=== PATIENT | female | born 1960 | race Caucasian/White ===

== ENCOUNTER 2017-10-11 19:15 | Inpatient (IN) | payer OTHER ==
[~2017-10-11] VITALS: Ht 152.4 cm; Wt 51.6 kg
[2017-10-11 19:24] VITALS: BP 131/99
[2017-10-11] MEDS ORDERED: LORAZEPAM 1 MG TAB PO PRN (20:00)
[2017-10-11] MEDS ORDERED: ICU PROTOCOL FOR HYPERGLYCEMIA PRN (20:00)
[2017-10-11 20:03] VITALS: BP 131/99; PULSE 82; O2SAT 93; Ht 152.4 cm; Wt 51.6 kg
[2017-10-11 20:08] VITALS: BP 84/59; PULSE 86; TEMP 36.7; O2SAT 92
--- NOTE | 2017-10-11 20:19 | History and Physical ---
History & Physical Date of Service Oct 11, 2017. History & Physical SEVERE HYPONATREMIA, ALCOHOL WITHDRAWAL, uti [id number]
[2017-10-11 20:26] LABS: INR 1.1 (0.9-1.1); PTT PATIENT 26.4 SECONDS (21.0-31.0)
[2017-10-11] MEDS ORDERED: CEPHALEXIN MONOHYDRATE 500 MG CAP PO ONE (20:30)
[2017-10-11] MEDS ORDERED: SODIUM CHLORIDE 0.9% 1000ML 1,000 ML IV SCH (20:30)
[2017-10-11] MEDS ORDERED: PANTOprazole SOD 40 MG TAB PO STA (20:32)
[2017-10-11 20:56] LABS: ALBUMIN 3.6 gm/dl (3.4-5.0); ALKALINE PHOSPHATASE 99 U/L (45-117); ALT/SGPT 49 U/L (12-78); AST/SGOT 72 U/L (15-37); BLOOD UREA NITROGEN 15 mg/dl (7-18); CALCIUM 8.2 mg/dl (8.5-10.1); CARBON DIOXIDE 31 mmol/L (21-32); GLUCOSE 103 mg/dl (70-99); POTASSIUM 2.8 mmol/L (3.5-5.1); SODIUM 114 mmol/L (136-145); TOTAL PROTEIN 6.4 gm/dl (6.4-8.2)
[2017-10-11] MEDS ORDERED: MULTI-VITAMIN INFUSION INJ 10 ML, THIAMINE HCL INJ 100 MG, FoLIC ACID INJ 1 MG in SODIU... IV SCH (21:00)
[2017-10-11] MEDS ORDERED: MULTI-VITAMIN INFUSION INJ 10 ML, THIAMINE HCL INJ 100 MG, FoLIC ACID INJ 1 MG in SODIU... IV ONE (21:00)
[2017-10-11 21:01] VITALS: BP 103/79; PULSE 99; O2SAT 90
[2017-10-11] MEDS: FLUTICASONE/SALMETEROL 100/50 (ADVAIR) 14 PUFF/1 INHALER INH SCH (21:02)
[2017-10-11 21:31] LABS: CKMB 9.8 ng/ml (0.5-3.6)
[2017-10-11] MEDS ORDERED: POTASSIUM CHLR 10 MEQ / WTR 100 ML IV STA ×2 (21:36)
[2017-10-11 21:46] LABS: HEMOGLOBIN 13.1 g/dL (12.0-16.0); MEAN CELL VOLUME 88.6 fL (80-100); MEAN CORPUSCULAR HEMOGLOBIN 33.2 pg (25-34); MEAN CORPUSCULAR HGB CONC 37.4 g/dl (32-36); MEAN PLATELET VOLUME 10.2 fL (7.4-10.4); PLATELET COUNT 225 K/uL (130-400); RED CELL DISTRIBUTION WIDTH CV 12.5 % (11.5-14.5); RED CELL DISTRIBUTION WIDTH SD 40.6 fL (36.4-46.3); WHITE BLOOD COUNT 7.61 K/uL (4.8-10.8)
[2017-10-11] MEDS ORDERED: POTASSIUM CHLORIDE 20 MEQ TABCR PO STA (21:46)
--- NOTE | 2017-10-11 21:46 | HISTORY & PHYSICAL EXAMINATION ---
DATE OF ADMISSION: 10/11/2017 This is a level 3 inpatient admission, 40 minutes. CHIEF COMPLAINT: Severe hyponatremic, alcoholic, severe hypokalemia and hypomagnesemia. HISTORY OF PRESENT ILLNESS: The patient is a 57-year-old white female with a significant past medical history of tobacco abuse disorder, COPD, alcohol abuse disorder, hypertension, dyslipidemia, transferred from [facility] because of severe hyponatremia, hypokalemia, and hypomagnesemia. Medical records obtained from ED physician in [facility], and face to face talk with patient. The patient reported she has not been feeling well for a couple of days. She has continued heavy alcohol intake. Last time alcohol drink was last night. She showed up in [facility] today because of generalized weakness and diarrhea as well. In [facility], she was found to have severe hyponatremia. They gave medicine of 3% of saline x1. She was found to have severe hypokalemia, potassium was replaced with 10 mEq IV and 30 mEq p.o. She was found to have hypomagnesemia. Magnesium 2 g was given. She reported was having tremors, not really mental status changes. Other testing has been unremarkable. When I interviewed the patient, she was anxious, some tremor, a little bit hyper in talking. She was awake, alert, and orientated. She was having some facial superficial skin scratches she reported was from cat scratch. There was not any drainage. There was no fever or chills. Denied chest pain, palpitation, cough, or sputum. Denied lower extremity swelling. Currently, denied nausea, vomiting, abdominal pain, diarrhea, or constipation. Denied dysuria, urgency, or frequencies. Denied facial droop, slurry speeches, or local weakness. Per report in [facility], she was having some emesis. She reportedly has some left rib pain and lower back pain from the fall over a month ago, which was evaluated. There were no acute conditions. ALLERGIES: No known drug allergies. PAST MEDICAL HISTORY: Like I mentioned above includes COPD, tobacco abuse disorder, hypertension, dyslipidemia, multiple remote injuries from the fall including some rib fractures and chronic lower back pain. SOCIAL HISTORY: Includes tobacco abuse disorder 1 pack per day, heavy alcohol intake, history of alcohol withdrawal. REVIEW OF SYSTEMS: Please see HPI. Otherwise 14 points organ system review were negative. MEDICATIONS: Given in [facility] include normal saline, Zofran, famotidine, DuoNeb, potassium, magnesium, thiamine, Librium, and Ativan. Her medicines taken at home were unknown. Per report she was taking some medicine for her high blood pressure, which was recently started. PHYSICAL EXAMINATION: VITAL SIGNS: The patient is afebrile, heart rate is 80 beats per minute, respiratory rate is around 18, blood pressure was 130/99, heart rate 114. GENERAL: In no acute respiratory distress. The patient is awake, alert, and oriented. HEENT: Head was normocephalic. Pupils equal, round, responsive to light. Ears were normal. Nose was normal. NECK: Supple. Thyroid: No enlargement. Trachea in midline. No JVD. ABDOMEN: Soft, nontender. Bowel sound was positive. No rebound, rigidity, or guarding. No mass. Bilateral CVA was nontender, MUSCULOSKELETAL: C-spine, T-spine, and L-spine were nontender. No chest wall pain. NEUROLOGICAL: Awake, alert, and oriented. No facial droop. Cranial nerves II through XII were intact. Motor and sensation were intact. EKGs in [facility] shows heart rate 88 beats per minutes, otherwise no ST-T phase changes. LABORATORY DATA: In [facility], WBC 11, hemoglobin 14, platelets 275, neutrophil was 84%. PT/INR were 11/1. UA shows 3+ esterase. BUN 17, creatinine 1, sodium 106, potassium 2.9, bicarbonate 31, calcium 9.2, magnesium 1.1. Total protein 7.8, albumin is 4.2, total bilirubin 1.3, AST 78, ALT 54, alkaline phosphate 119. Troponin was negative x1 set. BNP was 876. Urine drug screen was negative. Alcohol level was 0. IMAGING: Chest x-ray was unremarkable. ASSESSMENT: A 57-year-old white female transferred from [facility] because of problems below: 1. Severe hyponatremia. 2. Alcohol abuse disorder, possible early of alcohol withdrawal. 3. Severe hypokalemia. 4. Severe hypomagnesemia. 5. History of chronic obstructive pulmonary disease and tobacco abuse disorder. 6. Possible urinary tract infection with mild leukocytosis. 7. History of dyslipidemia. 8. History of hypertension. PLAN: The patient has severe hyponatremia. She got 3% sodium chloride solution in [facility]. Potassium and magnesium were replaced. We will check labs stat and replace accordingly. For now, we will continue normal saline solution at 150 mL/h, and we will check BMP at midnight, and then, we will adjust IV fluids accordingly. should keep in mind that minimal increased of sodium should be less taht 12 meq in 24 hr because high risk soft of central pontine syndrome if revise too quick. The patient currently is mentally good. Will put her on alcohol withdrawal protocol, banana bag, Ativan as needed, seizure precaution, fall precaution. Will continue DuoNeb for COPD. There were no signs of COPD exacerbation for now. Will give nicotine patch for history of tobacco abuse disorder. Will check fasting lipid panel, and we will start home medication for high blood pressure if we are able to find out the name of the medicine she was taking at home. [employer] consultation. Will watch for diarrhea. For now, she did not have obvious diarrhea. Will watch about that. GI and DVT prophylaxis is covered. The patient is full code. MTDD
[2017-10-11 21:48] LABS: BASO % 0.1 %; BASO ABS # 0.01 K/uL (0-0.2); EOS % 0.3 %; EOS ABS # 0.02 K/uL (0-0.5); IG# 0.02 K/uL (0.00-0.02); LYMPH % 11.6 %; LYMPH ABS # 0.88 K/uL (1.2-3.4); MONO % 8.9 %; MONO ABS # 0.68 K/uL (0.11-0.59); NEUT % 78.8 %
[2017-10-11 21:57] LABS: PHOSPHORUS 1.7 mg/dl (2.5-4.9)
[2017-10-11 22:01] VITALS: BP 98/69; PULSE 90; O2SAT 91
--- NOTE | 2017-10-11 22:52 | Critical Care Consultation ---
Critical Care Consultation Date of Consultation: Oct 11, 2017. Attending Physician: Karri Hooks MD, PhD Reason for Consultation: 57-year-old female with severe hyponatremia in the setting of alcoholism and possible fluid losses from GI source requiring close laboratory and hemodynamic monitoring. History of Present Illness Patient is a 57-year-old female with a significant past medical history of alcohol abuse, COPD, hypertension, and hyperlipidemia. Admittedly, the patient does not regularly see a primary care provider. She has had increasing falls and has recently been seen at [facility] for this. She states that on she noticed increasing nausea and associated vomiting and diarrhea. She has felt more weak and tired recently. She had persistent vomiting which brought her to the emergency department today. While at the [facility], she was thought to be altered. She received IV Ativan for agitation as well as 100 mL of 3% sodium chloride. In addition, she received 1500 L of normal saline as well as potassium supplementation with 30 mg orally and 10 mg intravenously. She received replacement of magnesium as well. She was declined by hospitalist at [facility] secondary to severe hyponatremia and was subsequently is accepted at our facility for further evaluation and management. It is important to note that the patient has had no seizure activities. Other than slight confusion, no other reported neurological manifestations have been documented. On evaluation in the ICU, the patient is awake, alert, and oriented. She is somewhat confused, however she reports feeling this way after the administration of Ativan at [facility]. The patient reports that the nausea, vomiting, diarrhea is what initially brought her to the hospital. She understands that her sodium is low as well as her potassium. She does admit that during previous emergency department visit, she was instructed to start to utilize magnesium supplementation which she has not to this point. The patient reports no pain. She does report a chronic cough which she states is unchanged. She does admit to drinking 2 large glasses of "rot gut" whiskey per night. She is uncertain as the last time she is been without a drink. She has never experienced withdrawal symptoms. She denies any history of withdrawal seizures. She denies any consumptions of significant amounts of free water, and actually reports that anything she is attempted to drink recently has been vomited back up. Patient currently denies any headaches, dizziness, lightheadedness, double vision, chest pain, palpitations, shortness of breath, pleuritic pain, hemoptysis, abdominal pain, hematochezia, melena, hematuria, or dysuria. The patient lives at home with her sister. She is employed. She smokes heavily. She denies any other illicit drug use. Past Medical/Surgical History Hypertension Hyperlipidemia COPD Alcohol Abuse Family History No pertinent family history. Social History Smoking Status: Current Every Day Smoker Smokeless Tobacco Use: No Alcohol Use: heavy Drug Use: none Marital Status: single Housing Status: lives with family Occupation Status: employed Allergies Coded Allergies: No Known Allergies (Unverified , 10/11/17) Current Inpatient Medications Current Inpatient Medications Medications (Trade) Dose Ordered Sig/Anirudh Route Start Time Stop Time Status Last Admin Dose Admin Enoxaparin Sodium (Lovenox Inj) 40 mg Q24H SQ 10/11/17 21:00 11/10/17 20:59 Acetaminophen (Tylenol Tab) 650 mg Q4H PRN PO 10/11/17 20:00 11/10/17 19:59 Miscellaneous Information (Icu Protocol For Hyperglycemia) 1 ea PRN PRN N/A 10/11/17 20:00 10/13/17 19:59 Lorazepam (Ativan Tab) 1 mg ONE PRN PO 10/11/17 20:00 Lorazepam (Ativan Inj) PRN Dosing -Active Protocol Q1H PRN IV 10/11/17 20:00 11/10/17 19:59 Nicotine (Nicoderm Cq 7 Mg Patch) 1 patch QAM TD 10/12/17 09:00 11/11/17 08:59 Miscellaneous (Remove Nicoderm Patch) 1 ea HS N/A 10/12/17 21:00 11/11/17 20:59 Pantoprazole Sodium (Protonix Tab) 40 mg QAM PO 10/12/17 09:00 10/15/17 09:01 Albuterol/ Ipratropium (Duoneb) 3 ml QIDR INH 10/12/17 08:00 11/11/17 07:59 Cephalexin Monohydrate (Keflex Cap) 500 mg QID PO 10/12/17 09:00 10/16/17 20:59 Salmeterol Xinafoate/ Fluticasone (Advair Diskus 100/50 Inh) 1 puff BID INH 10/11/17 21:00 11/10/17 20:59 10/11/17 21:02 1 PUFF Multivitamins 10 ml/Thiamine HCl 100 mg/Folic Acid 1 mg/Sodium Chloride 1,011.2 ml @ 80 mls/hr [id number] IV 10/11/17 21:00 11/10/17 20:59 Future Hold Potassium Chloride 100 ml @ 100 mls/hr NOW STAT IV 10/11/17 21:36 10/11/17 22:35 UNV Review of Systems A complete 10-point Review of Systems was discussed with the patient, with pertinent positives and negatives listed in the History of Present Illness. All remaining Review of Systems questions can be considered negative unless otherwise specified. Physical Exam Date Time Temp Pulse Resp B/P (MAP) Pulse Ox O2 Delivery O2 Flow Rate FiO2 10/11/17 20:03 82 20 131/99 93 Room Air VITAL SIGNS - Vital signs and nursing notes were reviewed. GENERAL - 57-year-old female appearing her stated age who is in no acute distress. Appears intoxicated, but communicates well with provider and answers questions appropriately. SKIN - Without rashes. Dry w/ tenting noted. HEAD - NC/AT. EYES - PERRL with EOMI bilaterally. Sclera anicteric. EARS - No deformities of external structures noted on gross examination bilaterally. NOSE - Midline and without cyanosis. No epistaxis or purulent drainage noted. MOUTH/OROPHARYNX - Without perioral cyanosis. Buccal mucosa pink and dry. Tongue midline with equal elevation of palate bilaterally. Edentulous in the upper palate. NECK - Neck with FROM. Supple to palpation. No lymphadenopathy noted. No nuchal rigidity. LUNGS - Chest wall symmetric without accessory muscle use, intercostals retractions, or central cyanosis. Normal vesicular breath sounds CTA B/L. Occasional inspiratory wheeze appreciated. No rales or rhonchi appreciated. CARDIAC - RRR with S1/S2. No murmur, rubs, or gallops appreciated. ABDOMEN - Abdominal contour flat without pulsations or visible masses. BS normoactive all four quadrants. No tenderness, palpable masses, hepatosplenomegaly, or ascites noted. EXTREMITIES - No clubbing or peripheral cyanosis. No pretibial edema present. +3 /5 radial and dorsalis pedis pulses palpated throughout. +5/5 strength noted in UE/LE bilaterally. NEUROLOGIC - Cranial nerves II through XII grossly intact. Sensory intact to light touch throughout. PSYCH - A&Ox3 and cooperates fully with examiner. Pt is very pleasant and interacts well with examiner. Laboratory Results Last 24 Hours Test 10/11/17 19:46 10/11/17 20:00 10/11/17 21:36 Creatine Kinase MB Ratio 0.7 White Blood Count 7.61 K/uL Red Blood Count 3.95 M/uL Hemoglobin 13.1 g/dL Hematocrit 35.0 % Mean Corpuscular Volume 88.6 fL Mean Corpuscular Hemoglobin 33.2 pg Mean Corpuscular Hemoglobin Concent 37.4 g/dl Platelet Count 225 K/uL Mean Platelet Volume 10.2 fL Neutrophils (%) (Auto) 78.8 % Lymphocytes (%) (Auto) 11.6 % Monocytes (%) (Auto) 8.9 % Eosinophils (%) (Auto) 0.3 % Basophils (%) (Auto) 0.1 % Neutrophils # (Auto) 6.00 K/uL Lymphocytes # (Auto) 0.88 K/uL Monocytes # (Auto) 0.68 K/uL Eosinophils # (Auto) 0.02 K/uL Basophils # (Auto) 0.01 K/uL RDW Standard Deviation 40.6 fL RDW Coefficient of Variation 12.5 % Immature Granulocyte % (Auto) 0.3 % Immature Granulocyte # (Auto) 0.02 K/uL Toxic Vacuolation 1+ Giant Platelets 1+ Prothrombin Time 11.3 SECONDS Prothromb Time International Ratio 1.1 Activated Partial Thromboplast Time 26.4 SECONDS Partial Thromboplastin Ratio 1.0 Sodium Level 114 mmol/L Potassium Level 2.8 mmol/L Chloride Level 74 mmol/L Carbon Dioxide Level 31 mmol/L Anion Gap 8.0 mmol/L Blood Urea Nitrogen 15 mg/dl Creatinine 0.80 mg/dl Est Creatinine Clear Calc Drug Dose 55.1 ml/min Estimated GFR () 94.2 Estimated GFR (Non- 81.3 BUN/Creatinine Ratio 18.4 Random Glucose 103 mg/dl Lactic Acid Level 1.2 mmol/L Calcium Level 8.2 mg/dl Phosphorus Level 1.7 mg/dl Magnesium Level 2.2 mg/dl Total Bilirubin 0.9 mg/dl Direct Bilirubin 0.2 mg/dl Aspartate Amino Transf (AST/SGOT) 72 U/L Alanine Aminotransferase (ALT/SGPT) 49 U/L Alkaline Phosphatase 99 U/L Total Creatine Kinase 1480 U/L Creatine Kinase MB 9.8 ng/ml Troponin I < 0.015 ng/ml Total Protein 6.4 gm/dl Albumin 3.6 gm/dl Vitamin B12 Level 837 pg/mL Folate 2.60 ng/mL Diagnostic Results Outside radiographic reports and EKGs were reviewed by myself. Assessment & Plan (1) Hyponatremia (2) Dehydration with hyponatremia (3) Nausea vomiting and diarrhea (4) Alcohol abuse (5) Hypomagnesemia (6) Hypokalemia (7) Tobacco abuse Reason Critically Ill: 57-year-old female with severe hyponatremia in the setting of alcoholism and possible fluid losses from GI source requiring close laboratory and hemodynamic monitoring. Neuro - * CAM ICU: NEGATIVE * EtOH Abuse: * CIWA protocols. * Folate/Thiamine daily. * Ativan PRN for agitation. * Will avoid excessive use of sedation medications while attempting to correct hyponatremia in an effort of avoiding clouding of neurological assessment. Cardiac - * Hypertension: * Hold home Rx until BP more stable. * EKG: NSR 88bpm w/o ST/T-wave changes per my interpretation. QTc 488ms - cautious use of QTc prolonging Rx. * Monitor on telemetry w/ multiple electrolyte derangements. Respiratory - * COPD w/ Chronic Cough: * Will add AM CXR * Nebs PRN * Supplemental O2 PRN * Encouraged smoking cessation. GI - * Gastroenteritis presentation (N/V/D): * Will allow full diet as tolerated. * Restrict Free Water to 1500mL/day in the setting of acute hyponatremia. * Prophylaxis: Protonix RENAL/LYTES - * Hyponatremia: * Labs at [facility] (1499) - Na 106/K 2.9/Cl 59/Mg 1.1 --> received 1500 cc boluses of NSS, 100 mL of 3% saline, 2g IV Mg * Labs on arrival (1999) - Na 114/K 2.8/Cl 74/Mg 2.2 * Likely combination of Pt's EtOH abuse. * Will hold all IVF at this time (including Banana bag) as pt Na increased by 8mmol/L in ~5hrs. * q4hr PRPs * Patient tolerating PO intake - will restrict to 1500mL/day at this point. * Supplement Na orally PRN * Will add Osmolality for completeness. * Will add urine Na to identify any contributing GI losses. * Hypokalemia: * Received 30 PO and 10 IV at [facility] * Also received albuterol nebulizer which may contribute to persistently low K levels. * Will supplement as needed. Thankfully, no EKG changes at this point. * Hyomagnesemia: * Supplement PRN. - * Michael in place. * Concerns for UTI at [facility]. * Will repeat w/ cath urine specimen. * Currently on Keflex. Will reassess w/ UA results. ENDO - * No h/o DM or Thyroid Dz * BSGs as ordered --> ISS/gtt per protocol. HEME - * Stable H&H * Will trend. ID - * ??UTI from [facility]: * Initially treated w/ PO Keflex. * Will repeat Cath urine specimen. * Adjust treatment as needed. * Monitor fever curve. LINES/IV ACCESS - * PIVs x2 * Michael Catheter DVT PROPHYLAXIS - * Lovenox sq * SCDs CODE STATUS - * In conversation with the patient, she initially wished to forego any heroic measures, however with her son present, she agrees to FULL CODE STATUS with the caveat that we will contact her children and they can make definitive decision to withdraw any measures as they deem fit. I have personally spent 45 minutes of critical care time in the direct management of this patient. This is a life/limb threatening event. This includes time spent evaluating patient, direct bedside care, chart review, placing orders, interpretation of diagnostic studies, discussion with consultants, patient, and family members, as well as other required patient management activities. This time is exclusive of all separately billable procedures, and teaching time and separate from and in addition to any other critical care service time. Thank you for this consultation allow us to be part of this patient's care. Please refer to my attending physician's documentation for any further recommendations.
[2017-10-11 23:02] VITALS: BP 120/89; PULSE 94; O2SAT 92
[2017-10-11] MEDS: ENOXAPARIN 40 MG/0.4 ML SYR SQ SCH (23:24)
[2017-10-11 23:48] LABS: CALCIUM 8.5 mg/dl (8.5-10.1); CREATININE 0.98 mg/dl (0.60-1.20); POTASSIUM 2.8 mmol/L (3.5-5.1)
[2017-10-12] VITALS (31 sets, daily range): BP systolic 89–150; BP diastolic 52–103; PULSE 76–142; TEMP 36.7–37.3; O2SAT 90–100
[2017-10-12] LABS: PHOSPHORUS 1.4 mg/dl (2.5-4.9)
[2017-10-12] MEDS ORDERED: POTASSIUM CHLR 10 MEQ / WTR 100 ML IV STA (00:40)
[2017-10-12 05:00] LABS: BASO % 0.1 %; BASO ABS # 0.01 K/uL (0-0.2); EOS % 0.5 %; EOS ABS # 0.04 K/uL (0-0.5); HEMATOCRIT 33.3 % (37-47); HEMOGLOBIN 12.4 g/dL (12.0-16.0); IG# 0.02 K/uL (0.00-0.02); LYMPH % 11.4 %; LYMPH ABS # 0.89 K/uL (1.2-3.4); MEAN CELL VOLUME 90.2 fL (80-100); MEAN CORPUSCULAR HEMOGLOBIN 33.6 pg (25-34); MEAN CORPUSCULAR HGB CONC 37.2 g/dl (32-36); MEAN PLATELET VOLUME 10.1 fL (7.4-10.4); MONO % 11.4 %; MONO ABS # 0.89 K/uL (0.11-0.59); NEUT % 76.3 %; NEUT ABS # 5.98 K/uL (1.4-6.5); PLATELET COUNT 214 K/uL (130-400); RED CELL DISTRIBUTION WIDTH CV 12.6 % (11.5-14.5); RED CELL DISTRIBUTION WIDTH SD 41.4 fL (36.4-46.3); WHITE BLOOD COUNT 7.83 K/uL (4.8-10.8)
[2017-10-12 05:27] LABS: ALBUMIN 3.4 gm/dl (3.4-5.0); CALCIUM 8.6 mg/dl (8.5-10.1); CREATININE 0.8 mg/dl (0.60-1.20); POTASSIUM 3.2 mmol/L (3.5-5.1)
[2017-10-12 05:44] LABS: PHOSPHORUS 2.1 mg/dl (2.5-4.9); TOTAL PROTEIN 6.1 gm/dl (6.4-8.2)
[2017-10-12] MEDS ORDERED: POTASSIUM CHLORIDE 20 MEQ TABCR PO STA ×2 (06:52→13:07)
--- NOTE | 2017-10-12 07:06 | DIAGNOSTIC IMAGING REPORT ---
CHEST ONE VIEW PORTABLE CLINICAL HISTORY: Cough. COMPARISON STUDY: No previous studies for comparison. FINDINGS: Lung volumes are normal. There is no pneumothorax or pleural effusion. There is no evidence for pulmonary edema. There is mild left basilar opacity. A 1.1 cm nodule projects over the left lower lung. This favors a nipple shadow. Cardiac size is normal. Mediastinal contours are normal. There is no evidence for pulmonary edema. IMPRESSION: 1. Mild left basilar opacity which may reflect atelectasis or a small focus of pneumonia. Follow-up PA and lateral chest radiographs in one month are recommended. 2. 1.1 cm nodular density projecting over the left lower lung which favors a nipple shadow. Electronically signed by: Ar Renee M.D. 10/12/2017 7:05 AM Dictated Date/Time: 10/12/2017 7:03 AM
[2017-10-12] MEDS: ALBUT/IPRATROP 3MG/0.5MG NEB 3 ML VIAL INH SCH ×4 (07:18→21:00)
[2017-10-12] MEDS: FLUTICASONE/SALMETEROL 100/50 (ADVAIR) 14 PUFF/1 INHALER INH SCH ×2 (07:50→20:58)
[2017-10-12] MEDS: NICOTINE 7 MG/24 HR TDSY TD SCH (07:52)
[2017-10-12] MEDS: POT PHOSPHATE MONOBASIC W/ SOD TAB PO SCH ×4 (07:53→20:59)
[2017-10-12] MEDS: DEXTROSE 10% 1,000 ML IV SCH ×3 (08:00→21:01)
[2017-10-12] MEDS ORDERED: PANTOprazole SOD 40 MG TAB PO SCH (09:00)
[2017-10-12] MEDS ORDERED: MULTI-VITAMIN INFUSION INJ 10 ML, THIAMINE HCL INJ 100 MG, FoLIC ACID INJ 1 MG in SODIU... IV SCH (09:00)
[2017-10-12] MEDS ORDERED: CEPHALEXIN MONOHYDRATE 500 MG CAP PO SCH (09:00)
[2017-10-12] MEDS ORDERED: THIAMINE HCL INJ 100 MG in SYRINGE 9 ML IV SCH (09:00)
[2017-10-12] MEDS ORDERED: FoLIC ACID INJ 1 MG in SYRINGE 9.8 ML IV SCH (09:00)
--- NOTE | 2017-10-12 09:33 | Progress Note ---
Subjective Date of Service: Oct 12, 2017. Subjective Pt evaluation today including: conversation w/ patient, physical exam, chart review, lab review, review of studies, review of inpatient medication list was a little confused this am, but doing better now, has been on the phone talking, mild cough, no tremor, denies anxiety.. Problem List Medical Problems: (1) Dehydration with hyponatremia Status: Acute (2) Hypokalemia Status: Acute (3) Hypomagnesemia Status: Acute (4) Hyponatremia Status: Acute (5) Nausea vomiting and diarrhea Status: Acute (6) Tobacco abuse Status: Chronic Social History Problems: (1) Alcohol abuse Status: Chronic Review of Systems Constitutional: + weakness, + fatigue, No fever, No chills, No sweats, No weight loss, No problem reported Eyes: No worsening of vision, No eye pain, No redness, No discharge, No diplopia ENT: No hearing loss, No unusual epistaxis, No nasal symptoms, No sore throat, No tinnitus, No dental problems, No trouble swallowing Respiratory: No cough, No sputum, No wheezing, No shortness of breath, No dyspnea on exertion, No dyspnea at rest, No hemoptysis Cardiac: No chest pain, No orthopnea, No PND, No edema, No claudication, No palpitations Abdomen: No pain, No nausea, No vomiting, No diarrhea, No constipation Musculoskeletal: No joint pain, No muscle pain, No swelling, No calf pain Female : No dysuria, No urinary frequency, No hematuria, No incontinence, No abnormal vaginal bleeding, No vaginal discharge Neurologic: No memory loss, No paralysis, No weakness, No numbness/tingling, No vertigo, No balance problems Psychiatric: No depression symptoms, No anhedonism, No anxiety, No insomnia, No substance abuse Heme: No abnormal bleeding/bruising, No clotting problems, No swollen lymph nodes, No night sweats Endo: No fatigue, No excessive thirst, No excessive urination Skin: No rash, No itch, No new/changing skin lesions, No color change, No bleeding Objective Vital Signs Date Time Temp Pulse Resp B/P (MAP) Pulse Ox O2 Delivery O2 Flow Rate FiO2 10/12/17 07:35 77 18 94 Room Air 10/12/17 06:01 79 19 89/60 (70) 90 10/12/17 05:01 95 25 100/52 (68) 92 10/12/17 04:09 Room Air 10/12/17 04:01 37.3 93 21 115/83 (94) 90 10/12/17 03:03 98 20 122/79 (93) 91 10/12/17 02:01 37.0 86 21 113/73 (86) 98 10/12/17 01:01 87 24 105/64 (78) 92 10/12/17 00:11 Room Air 10/12/17 00:01 36.7 86 21 115/78 (90) 93 10/11/17 23:02 94 19 120/89 (99) 92 10/11/17 22:01 90 19 98/69 (79) 91 10/11/17 21:01 99 26 103/79 (87) 90 10/11/17 20:08 36.7 86 24 84/59 (67) 92 10/11/17 20:03 82 20 131/99 93 Room Air 10/11/17 19:24 131/99 (110) Physical Exam General Appearance: WD/WN, no apparent distress, + thin Eyes: normal inspection, PERRL, EOMI, sclerae normal ENT: normal ENT inspection, hearing grossly normal, pharynx normal Neck: supple, no adenopathy, thyroid normal, no JVD, no carotid bruits, trachea midline Respiratory/Chest: chest non-tender, no respiratory distress, no accessory muscle use, + decreased breath sounds (significantly ) Cardiovascular: regular rate, rhythm, no edema, no gallop, no JVD, no murmur Abdomen: normal bowel sounds, non tender, soft, no organomegaly, no pulsatile mass Extremities: normal range of motion, non-tender, normal inspection, no pedal edema, no calf tenderness, normal capillary refill, pelvis stable 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, no motor/sensory deficits, alert, normal mood/affect, oriented x 3 Skin: normal color, warm/dry, no rash Lymphatic: no adenopathy Laboratory Results Last 24 Hours Test 10/11/17 19:46 10/11/17 20:00 10/11/17 23:00 10/11/17 23:18 Creatine Kinase MB Ratio 0.7 White Blood Count 7.61 K/uL Red Blood Count 3.95 M/uL Hemoglobin 13.1 g/dL Hematocrit 35.0 % Mean Corpuscular Volume 88.6 fL Mean Corpuscular Hemoglobin 33.2 pg Mean Corpuscular Hemoglobin Concent 37.4 g/dl Platelet Count 225 K/uL Mean Platelet Volume 10.2 fL Neutrophils (%) (Auto) 78.8 % Lymphocytes (%) (Auto) 11.6 % Monocytes (%) (Auto) 8.9 % Eosinophils (%) (Auto) 0.3 % Basophils (%) (Auto) 0.1 % Neutrophils # (Auto) 6.00 K/uL Lymphocytes # (Auto) 0.88 K/uL Monocytes # (Auto) 0.68 K/uL Eosinophils # (Auto) 0.02 K/uL Basophils # (Auto) 0.01 K/uL RDW Standard Deviation 40.6 fL RDW Coefficient of Variation 12.5 % Immature Granulocyte % (Auto) 0.3 % Immature Granulocyte # (Auto) 0.02 K/uL Toxic Vacuolation 1+ Giant Platelets 1+ Prothrombin Time 11.3 SECONDS Prothromb Time International Ratio 1.1 Activated Partial Thromboplast Time 26.4 SECONDS Partial Thromboplastin Ratio 1.0 Sodium Level 114 mmol/L 116 mmol/L Potassium Level 2.8 mmol/L 2.8 mmol/L Chloride Level 74 mmol/L 74 mmol/L Carbon Dioxide Level 31 mmol/L 32 mmol/L Anion Gap 8.0 mmol/L 10.0 mmol/L Blood Urea Nitrogen 15 mg/dl 14 mg/dl Creatinine 0.80 mg/dl 0.98 mg/dl Est Creatinine Clear Calc Drug Dose 55.1 ml/min 44.9 ml/min Estimated GFR () 94.2 73.7 Estimated GFR (Non- 81.3 63.6 BUN/Creatinine Ratio 18.4 14.5 Random Glucose 103 mg/dl 119 mg/dl Osmolality 235 mOsm/kg Lactic Acid Level 1.2 mmol/L Calcium Level 8.2 mg/dl 8.5 mg/dl Phosphorus Level 1.7 mg/dl 1.4 mg/dl Magnesium Level 2.2 mg/dl 2.2 mg/dl Total Bilirubin 0.9 mg/dl Direct Bilirubin 0.2 mg/dl Aspartate Amino Transf (AST/SGOT) 72 U/L Alanine Aminotransferase (ALT/SGPT) 49 U/L Alkaline Phosphatase 99 U/L Total Creatine Kinase 1480 U/L Creatine Kinase MB 9.8 ng/ml Troponin I < 0.015 ng/ml Total Protein 6.4 gm/dl Albumin 3.6 gm/dl Vitamin B12 Level 837 pg/mL Folate 2.60 ng/mL Urine Color YELLOW Urine Appearance CLEAR Urine pH 6.5 Urine Specific [place] 1.007 Urine Protein NEG Urine Glucose (UA) NEG Urine Ketones NEG Urine Occult Blood TRACE Urine Nitrite NEG Urine Bilirubin NEG Urine Urobilinogen NEG Urine Leukocyte Esterase NEG Urine WBC (Auto) 1-5 /hpf Urine RBC (Auto) 0-4 /hpf Urine Hyaline Casts (Auto) 0 /lpf Urine Epithelial Cells (Auto) 0-5 /lpf Urine Bacteria (Auto) NEG Urine Random Sodium 30 mEq/L Test 10/12/17 04:34 10/12/17 08:57 White Blood Count 7.83 K/uL Red Blood Count 3.69 M/uL Hemoglobin 12.4 g/dL Hematocrit 33.3 % Mean Corpuscular Volume 90.2 fL Mean Corpuscular Hemoglobin 33.6 pg Mean Corpuscular Hemoglobin Concent 37.2 g/dl Platelet Count 214 K/uL Mean Platelet Volume 10.1 fL Neutrophils (%) (Auto) 76.3 % Lymphocytes (%) (Auto) 11.4 % Monocytes (%) (Auto) 11.4 % Eosinophils (%) (Auto) 0.5 % Basophils (%) (Auto) 0.1 % Neutrophils # (Auto) 5.98 K/uL Lymphocytes # (Auto) 0.89 K/uL Monocytes # (Auto) 0.89 K/uL Eosinophils # (Auto) 0.04 K/uL Basophils # (Auto) 0.01 K/uL RDW Standard Deviation 41.4 fL RDW Coefficient of Variation 12.6 % Immature Granulocyte % (Auto) 0.3 % Immature Granulocyte # (Auto) 0.02 K/uL Sodium Level 121 mmol/L Potassium Level 3.2 mmol/L Chloride Level 80 mmol/L Carbon Dioxide Level 33 mmol/L Anion Gap 8.0 mmol/L Blood Urea Nitrogen 12 mg/dl Creatinine 0.80 mg/dl Est Creatinine Clear Calc Drug Dose 55.1 ml/min Estimated GFR () 94.2 Estimated GFR (Non- 81.3 BUN/Creatinine Ratio 15.5 Random Glucose 102 mg/dl Calcium Level 8.6 mg/dl Phosphorus Level 2.1 mg/dl Magnesium Level 2.0 mg/dl Total Bilirubin 0.9 mg/dl Direct Bilirubin 0.2 mg/dl Aspartate Amino Transf (AST/SGOT) 69 U/L Alanine Aminotransferase (ALT/SGPT) 47 U/L Alkaline Phosphatase 92 U/L Total Creatine Kinase 1172 U/L Total Protein 6.1 gm/dl Albumin 3.4 gm/dl Triglycerides Level 68 mg/dl Cholesterol Level 166 mg/dl HDL Cholesterol 74 mg/dl LDL Cholesterol, Calculated 78 mg/dl VLDL Cholesterol, Calculated 14 mg/dl Cholesterol/HDL Ratio 2.2 Lipase 138 U/L Assessment and Plan A 57-year-old white female transferred from [facility] on October 11/2018 because of Severe hyponatremia Severe hyponatremia, likely from alcohol intake: stable , better, 114 to 121 Alcohol abuse disorder, possible early of alcohol withdrawal, stable for now Severe hypokalemia: replaced and follow up Severe hypomagnesemia: resolved History of chronic obstructive pulmonary disease and tobacco abuse disorder: stable , continue neb, advair Possible urinary tract infection with mild leukocytosis. History of dyslipidemia. History of hypertension: currently is borderline low bp, hold home BP med folic acid deficiency: replacing PLAN: as above , continue ivf, watch lyes, cautious not to revise sodium too fast, no free water restriction now discussed with ICU team GI and DVT prophylaxis is covered. full code. Continued [facility] stay due to: multiple IV medications needed Discharge planning: uncertain
--- NOTE | 2017-10-12 10:35 | DIAGNOSTIC IMAGING REPORT ---
ULTRASOUND ASCITES CHECK CLINICAL HISTORY: Elevated hepatic transaminases. COMPARISON STUDY: No priors. FINDINGS: Real-time grayscale sonography of all 4 quadrants of the abdomen was performed to assess for abdominal ascites. No abdominal ascites is seen. The bladder is partially decompressed around a Michael catheter. IMPRESSION: No abdominal ascites is identified. Electronically signed by: Matt Underwood M.D. 10/12/2017 10:33 AM Dictated Date/Time: 10/12/2017 10:32 AM
[2017-10-12 10:41] LABS: HEP C IGG 13 YRS+OLDER_RFLX NEG (NEG)
--- NOTE | 2017-10-12 10:41 | Critical Care Progress Note ---
Critical Care Progress Note Date of Service Oct 12, 2017. ICU Day ICU Day Number: [address] Hudson Subjective Found patient sitting up in bed, speaking comfortably, but productive of white- sputum cough. She complained of some left-sided rib pain (due to recent falls due to tripping on her cat) and states that her sinuses are draining. Says that contributes to her chronic cough. Compared to yesterday, she states her shaking is resolved and she has had no emesis or diarrhea here. She denies any acute concerns. She says the last break in her daily alcohol use was about 3 years ago for a 30 day period, during which time she denies any withdrawal symptoms. Objective General Appearance: Awake, alert & oriented to person/place/time, comfortable in general, NAD. CV: +S1S2 RRR, no murmur. Pulm: Mild decreased breath sounds throughout, prolonged expiratory phase, no rales/rhonchi appreciated. Abdomen: +BS, soft, non-tender, non-distended. Extremities: No pedal edema or calf tenderness. Moving all extremities naturally and easily. Neuro: No gross neuro deficits. Quickly interactive, follows commands, answers questions appropriately. Skin: Healing abrasion to bridge of nose. Assessment & Plan 57 yo female transferred from [facility] on [id number] for severe hyponatremia and recent N/V/D. PMH: Alcohol abuse, COPD, HTN, HLD. 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 PMH multiple years daily EtOH abuse, last drink 21Apr. EtOH at OSH was zero. UDS negative as well. On CIWA protocol, no ativan prn needed thus far. On folate 1 mg daily and thiamine 200 mg TID. Trying to avoid sedating medications. See "lytes" below regarding hyponatremia, which very likely contributed to her reported AMS. Pulm: PMH COPD, chronic cough, smoker. 23Apr pCXR with mild left basilar opacity, ? atelectasis. Afebrile, not tachycardic/tachypneic, good room SpO2. On duoneb QID, flonase daily, advair BID. Nicoderm patch as well. No acute issues. CVS: PMH HTN. Per OSH records, EKG NSR 88 but QTc 488. Also reported home meds HCTZ 25 mg daily and Lisinopril 10 mg daily. Both held acutely, monitoring BP. On telemetry. - Will repeat EKG here. Otherwise no acute issues. ID: Concern for UTI at OSH, started on keflex, but no UCx there. Here cath urine only positive for trace blood (RBC 0-4). Afebrile, blood WBC 7, lactate 1.2. - Stopped keflex, will monitor for urinary symptoms. Otherwise no acute issues. Endo: PMH HLD, reviewed lipid panel here. TSH normal. Monitoring glucose. Renal/Lytes: Overall, Cr 0.8. Michael in place, monitoring UOP. - Hyponatremia: At OSH, Na 106. Likely related to chronic EtOH use in setting of acute N/V/D. Received NS boluses and 3% saline. Corrected to Na 121 in about 13 hours. Will proceed with correction slowly from here. --> NPO except free water and ice chips. Check BMP q4h x 24 hours. On D10 at 100 mL/hr. - Hypokalemia: At OSH, K 2.9. No clear EKG changes. Replacing, monitoring. - Hypomagnesemia: At OSH, Mg 1.1. Replaced, monitoring. - Hypophosphatemia: Here lowest Phos 1.4. On scheduled K phos QID, monitoring. - Low chloride: At OSH, Cl 59. Replaced via NS, monitoring. - Elevated CK: CK 1480, improving with IVF. GI: PMH EtOH abuse and recent N/V/D, but none of both here thus far. AST 72, ALT 49. Lipase normal. - Ordered RUQ u/s to evaluate for cirrhosis (in setting of transaminitis). - Ordered hepatitis panel. - NPO except water and ice chips due to above electrolyte issues. Heme: Hb 12. Plt 214. No acute issues. Skin: Healing abrasion to nose s/p old fall. Lines: PIV left AC and right hand. Michael catheter. Code status: Full code for now, but wants to discuss with family. DVT prophy: Lovenox 40 q24h. SCD's. PT/OT: Deferred. Disposition: ICU care. Critically ill. Resident Physician Supervision Note: Dr. Beka Roy was resident physician during care of patient. I separately evaluated patient and did history and exam. I discussed the case with the resident and generally agree with the findings and plan. Patient was discussed in multi-disciplinary rounds. Requires free fluids to keep sodium correction within acceptable limits. Alcohol withdrawal protocol. I have personally spent 50 minutes of critical care time in the direct management of this patient. This is a life/limb threatening event. This includes time spent evaluating patient, direct bedside care, chart review, placing orders, interpretation of diagnostic studies, discussion with consultants, patient, and/or family members regarding treatment decisions, as well as other required patient management activities. This time is exclusive of all separately billable procedures, and teaching time and separate from and in addition to any other critical care service time. Documented By: Solomon Hudson DO Consults & Procedures Consultants: None. Procedures: - 23Apr pCXR. Data Medications: Current Inpatient Medications Medications (Trade) Dose Ordered Sig/Anirudh Route Start Time Stop Time Status Last Admin Dose Admin Enoxaparin Sodium (Lovenox Inj) 40 mg Q24H SQ 10/11/17 21:00 11/10/17 20:59 10/11/17 23:24 40 MG Acetaminophen (Tylenol Tab) 650 mg Q4H PRN PO 10/11/17 20:00 11/10/17 19:59 Miscellaneous Information (Icu Protocol For Hyperglycemia) 1 ea PRN PRN N/A 10/11/17 20:00 10/13/17 19:59 Lorazepam (Ativan Tab) 1 mg ONE PRN PO 10/11/17 20:00 Lorazepam (Ativan Inj) PRN Dosing -Active Protocol Q1H PRN IV 10/11/17 20:00 11/10/17 19:59 Nicotine (Nicoderm Cq 7 Mg Patch) 1 patch QAM TD 10/12/17 09:00 11/11/17 08:59 10/12/17 07:52 1 PATCH Miscellaneous (Remove Nicoderm Patch) 1 ea HS N/A 10/12/17 21:00 11/11/17 20:59 Albuterol/ Ipratropium (Duoneb) 3 ml QIDR INH 10/12/17 08:00 11/11/17 07:59 10/12/17 07:18 3 ML Salmeterol Xinafoate/ Fluticasone (Advair Diskus 100/50 Inh) 1 puff BID INH 10/11/17 21:00 11/10/17 20:59 10/12/17 07:50 1 PUFF Potassium/ Phosphorus/Sodium (Phospha 250 Neutral 155-852-130 Mg) 2 tab QID PO 10/12/17 09:00 11/11/17 08:59 10/12/17 07:53 2 TAB Dextrose 1,000 ml @ 100 mls/hr Q10H IV 10/12/17 07:15 11/11/17 07:14 10/12/17 08:00 100 MLS/HR Fluticasone Propionate (Flonase Nasal [place]) 2 sprays DAILY NA 10/12/17 09:00 11/11/17 08:59 Thiamine HCl (Vitamin B-1 Tab) 200 mg TID PO 10/12/17 14:00 11/11/17 13:59 Folic Acid (Folvite Tab) 1 mg QAM PO 10/13/17 09:00 11/12/17 08:59 Vital Signs: Date Time Temp Pulse Resp B/P (MAP) Pulse Ox O2 Delivery O2 Flow Rate FiO2 10/12/17 09:00 95 22 92 Room Air 10/12/17 08:01 95 21 124/76 (92) 91 10/12/17 08:00 99 21 94 10/12/17 07:40 Room Air 10/12/17 07:35 77 18 94 Room Air 10/12/17 07:01 36.9 90 13 112/65 (81) 91 Room Air 10/12/17 07:00 76 19 92 10/12/17 06:01 79 19 89/60 (70) 90 10/12/17 05:01 95 25 100/52 (68) 92 10/12/17 04:09 Room Air 10/12/17 04:01 37.3 93 21 115/83 (94) 90 10/12/17 03:03 98 20 122/79 (93) 91 10/12/17 02:01 37.0 86 21 113/73 (86) 98 10/12/17 01:01 87 24 105/64 (78) 92 10/12/17 00:11 Room Air 10/12/17 00:01 36.7 86 21 115/78 (90) 93 10/11/17 23:02 94 19 120/89 (99) 92 10/11/17 22:01 90 19 98/69 (79) 91 10/11/17 21:01 99 26 103/79 (87) 90 10/11/17 20:08 36.7 86 24 84/59 (67) 92 10/11/17 20:03 82 20 131/99 93 Room Air 10/11/17 19:24 131/99 (110) Laboratory Results: Last 24 Hours Test 10/11/17 19:46 10/11/17 20:00 10/11/17 23:00 10/11/17 23:18 Creatine Kinase MB Ratio 0.7 White Blood Count 7.61 K/uL Red Blood Count 3.95 M/uL Hemoglobin 13.1 g/dL Hematocrit 35.0 % Mean Corpuscular Volume 88.6 fL Mean Corpuscular Hemoglobin 33.2 pg Mean Corpuscular Hemoglobin Concent 37.4 g/dl Platelet Count 225 K/uL Mean Platelet Volume 10.2 fL Neutrophils (%) (Auto) 78.8 % Lymphocytes (%) (Auto) 11.6 % Monocytes (%) (Auto) 8.9 % Eosinophils (%) (Auto) 0.3 % Basophils (%) (Auto) 0.1 % Neutrophils # (Auto) 6.00 K/uL Lymphocytes # (Auto) 0.88 K/uL Monocytes # (Auto) 0.68 K/uL Eosinophils # (Auto) 0.02 K/uL Basophils # (Auto) 0.01 K/uL RDW Standard Deviation 40.6 fL RDW Coefficient of Variation 12.5 % Immature Granulocyte % (Auto) 0.3 % Immature Granulocyte # (Auto) 0.02 K/uL Toxic Vacuolation 1+ Giant Platelets 1+ Prothrombin Time 11.3 SECONDS Prothromb Time International Ratio 1.1 Activated Partial Thromboplast Time 26.4 SECONDS Partial Thromboplastin Ratio 1.0 Sodium Level 114 mmol/L 116 mmol/L Potassium Level 2.8 mmol/L 2.8 mmol/L Chloride Level 74 mmol/L 74 mmol/L Carbon Dioxide Level 31 mmol/L 32 mmol/L Anion Gap 8.0 mmol/L 10.0 mmol/L Blood Urea Nitrogen 15 mg/dl 14 mg/dl Creatinine 0.80 mg/dl 0.98 mg/dl Est Creatinine Clear Calc Drug Dose 55.1 ml/min 44.9 ml/min Estimated GFR () 94.2 73.7 Estimated GFR (Non- 81.3 63.6 BUN/Creatinine Ratio 18.4 14.5 Random Glucose 103 mg/dl 119 mg/dl Osmolality 235 mOsm/kg Lactic Acid Level 1.2 mmol/L Calcium Level 8.2 mg/dl 8.5 mg/dl Phosphorus Level 1.7 mg/dl 1.4 mg/dl Magnesium Level 2.2 mg/dl 2.2 mg/dl Total Bilirubin 0.9 mg/dl Direct Bilirubin 0.2 mg/dl Aspartate Amino Transf (AST/SGOT) 72 U/L Alanine Aminotransferase (ALT/SGPT) 49 U/L Alkaline Phosphatase 99 U/L Total Creatine Kinase 1480 U/L Creatine Kinase MB 9.8 ng/ml Troponin I < 0.015 ng/ml Total Protein 6.4 gm/dl Albumin 3.6 gm/dl Vitamin B12 Level 837 pg/mL Folate 2.60 ng/mL Urine Color YELLOW Urine Appearance CLEAR Urine pH 6.5 Urine Specific [place] 1.007 Urine Protein NEG Urine Glucose (UA) NEG Urine Ketones NEG Urine Occult Blood TRACE Urine Nitrite NEG Urine Bilirubin NEG Urine Urobilinogen NEG Urine Leukocyte Esterase NEG Urine WBC (Auto) 1-5 /hpf Urine RBC (Auto) 0-4 /hpf Urine Hyaline Casts (Auto) 0 /lpf Urine Epithelial Cells (Auto) 0-5 /lpf Urine Bacteria (Auto) NEG Urine Random Sodium 30 mEq/L Test 10/12/17 04:34 10/12/17 08:57 White Blood Count 7.83 K/uL Red Blood Count 3.69 M/uL Hemoglobin 12.4 g/dL Hematocrit 33.3 % Mean Corpuscular Volume 90.2 fL Mean Corpuscular Hemoglobin 33.6 pg Mean Corpuscular Hemoglobin Concent 37.2 g/dl Platelet Count 214 K/uL Mean Platelet Volume 10.1 fL Neutrophils (%) (Auto) 76.3 % Lymphocytes (%) (Auto) 11.4 % Monocytes (%) (Auto) 11.4 % Eosinophils (%) (Auto) 0.5 % Basophils (%) (Auto) 0.1 % Neutrophils # (Auto) 5.98 K/uL Lymphocytes # (Auto) 0.89 K/uL Monocytes # (Auto) 0.89 K/uL Eosinophils # (Auto) 0.04 K/uL Basophils # (Auto) 0.01 K/uL RDW Standard Deviation 41.4 fL RDW Coefficient of Variation 12.6 % Immature Granulocyte % (Auto) 0.3 % Immature Granulocyte # (Auto) 0.02 K/uL Sodium Level 121 mmol/L Potassium Level 3.2 mmol/L Chloride Level 80 mmol/L Carbon Dioxide Level 33 mmol/L Anion Gap 8.0 mmol/L Blood Urea Nitrogen 12 mg/dl Creatinine 0.80 mg/dl Est Creatinine Clear Calc Drug Dose 55.1 ml/min Estimated GFR () 94.2 Estimated GFR (Non- 81.3 BUN/Creatinine Ratio 15.5 Random Glucose 102 mg/dl Calcium Level 8.6 mg/dl Phosphorus Level 2.1 mg/dl Magnesium Level 2.0 mg/dl Total Bilirubin 0.9 mg/dl Direct Bilirubin 0.2 mg/dl Aspartate Amino Transf (AST/SGOT) 69 U/L Alanine Aminotransferase (ALT/SGPT) 47 U/L Alkaline Phosphatase 92 U/L Total Creatine Kinase 1172 U/L Total Protein 6.1 gm/dl Albumin 3.4 gm/dl Triglycerides Level 68 mg/dl Cholesterol Level 166 mg/dl HDL Cholesterol 74 mg/dl LDL Cholesterol, Calculated 78 mg/dl VLDL Cholesterol, Calculated 14 mg/dl Cholesterol/HDL Ratio 2.2 Lipase 138 U/L Thyroid Stimulating Hormone (TSH) 1.100 uIu/ml Hepatitis B Surface Antigen NEG Resident Tracking Resident Involvement: Resident Care Provided Care Provided: Adult Hospital Medicine (ICU )
[2017-10-12] MEDS: FLUTICASONE PROPIONATE NA SPR 16 GM BTL SCH (11:35)
[2017-10-12 12:21] LABS: CREATININE 0.86 mg/dl (0.60-1.20)
[2017-10-12 12:22] LABS: CALCIUM 8.7 mg/dl (8.5-10.1)
[2017-10-12] MEDS: THIAMINE HCL 100 MG TAB PO SCH ×2 (12:39→20:59)
--- NOTE | 2017-10-12 16:30 | DIAGNOSTIC IMAGING REPORT ---
ABDOMINAL ULTRASOUND, RIGHT UPPER QUADRANT HISTORY: RUQ liver u/s, eval for cirrhosis. COMPARISON: None. FINDINGS: Pancreas: The pancreas demonstrates a normal echotexture. Liver: The liver is slightly echogenic consistent with mild fatty change. No definite evidence for cirrhosis. Gallbladder: Nonmobile round echogenic foci within the gallbladder. Therefore, these favor polyps. The largest measures 1 cm. There is a second polyp measuring 7 mm. No gallbladder wall thickening. CBD: 4 mm. Right kidney: No hydronephrosis. Cluster of cysts within the upper pole of the right kidney. Dominant cyst measures 3.2 cm. No definite soft tissue component identified IMPRESSION: 1. Mild hepatic steatosis. No definite evidence for cirrhosis. 2. There are 2 nonmobile round echogenic foci within the gallbladder. Therefore, these favor polyps. The largest measures 1 cm. Surgical consultation is recommended due to the fact that a 1 cm polyp is typically resected. 3. There appears to be a cluster of cysts within the upper pole of the right kidney. However, six-month ultrasound follow up is recommended to ensure stability and to exclude the less likely possibility of septated cystic lesion. Electronically signed by: Ruslan Boss M.D. 10/12/2017 4:28 PM Dictated Date/Time: 10/12/2017 4:24 PM
[2017-10-12 16:34] LABS: CREATININE 0.8 mg/dl (0.60-1.20); POTASSIUM 2.9 mmol/L (3.5-5.1)
[2017-10-12] MEDS ORDERED: FUROSEMIDE 40 MG/4 ML VIAL ONE (17:32)
[2017-10-12] MEDS ORDERED: DESMOPRESSIN ACETATE INJ 1 MCG in SODIUM CHLORIDE 0.9% 50ML 50 ML IV ONE (19:15)
[2017-10-12] MEDS: LORAZEPAM 2 MG/ML 1 ML VIAL IV PRN (20:57)
[2017-10-12] MEDS: ENOXAPARIN 40 MG/0.4 ML SYR SQ SCH (20:59)
[2017-10-12 21:12] LABS: CALCIUM 8.8 mg/dl (8.5-10.1); CREATININE 0.85 mg/dl (0.60-1.20); POTASSIUM 2.9 mmol/L (3.5-5.1)
[2017-10-12] MEDS ORDERED: POTASSIUM CHLORIDE 20 MEQ TABCR PO ONE (21:45)
[2017-10-13] VITALS (41 sets, daily range): BP systolic 95–155; BP diastolic 72–109; PULSE 82–124; TEMP 36.8–37.1; O2SAT 91–100
[2017-10-13] MEDS: LORAZEPAM 2 MG/ML 1 ML VIAL IV PRN ×3 (00:03→15:45)
[2017-10-13] MEDS ORDERED: INSULIN GLARGINE SOLOSTAR 100 UNITS/ML 3 ML PEN SC ONE (00:30)
[2017-10-13 00:53] LABS: CALCIUM 8.7 mg/dl (8.5-10.1); CREATININE 0.67 mg/dl (0.60-1.20); POTASSIUM 3.1 mmol/L (3.5-5.1)
[2017-10-13] MEDS: INSULIN ASPART 100 UNITS/ML 3 ML PEN SC SCH ×2 (01:15→06:00)
[2017-10-13] MEDS: DEXTROSE 10% 1,000 ML IV SCH (03:42)
[2017-10-13 04:08] LABS: BASO % 0.4 %; BASO ABS # 0.04 K/uL (0-0.2); EOS % 1.3 %; EOS ABS # 0.13 K/uL (0-0.5); HEMATOCRIT 31.6 % (37-47); HEMOGLOBIN 11.3 g/dL (12.0-16.0); IG# 0.03 K/uL (0.00-0.02); LYMPH % 15.1 %; LYMPH ABS # 1.51 K/uL (1.2-3.4); MEAN CELL VOLUME 91.9 fL (80-100); MEAN CORPUSCULAR HEMOGLOBIN 32.8 pg (25-34); MEAN CORPUSCULAR HGB CONC 35.8 g/dl (32-36); MEAN PLATELET VOLUME 9.8 fL (7.4-10.4); MONO % 13.4 %; MONO ABS # 1.34 K/uL (0.11-0.59); NEUT % 69.5 %; NEUT ABS # 6.95 K/uL (1.4-6.5); PLATELET COUNT 224 K/uL (130-400); RED CELL DISTRIBUTION WIDTH CV 12.6 % (11.5-14.5); RED CELL DISTRIBUTION WIDTH SD 42.2 fL (36.4-46.3)
[2017-10-13 04:33] LABS: CREATININE 0.47 mg/dl (0.60-1.20); PHOSPHORUS 2.5 mg/dl (2.5-4.9); POTASSIUM 3.1 mmol/L (3.5-5.1)
[2017-10-13] MEDS: MAGNESIUM SULFATE 1GM / D5W 100 ML IV SCH ×2 (05:41→06:42)
[2017-10-13] MEDS ORDERED: POTASSIUM CHLORIDE 20 MEQ TABCR PO STA (05:41)
[2017-10-13] MEDS ORDERED: POTASSIUM CHLR 10 MEQ / WTR 100 ML IV SCH (06:00)
[2017-10-13] MEDS: ALBUT/IPRATROP 3MG/0.5MG NEB 3 ML VIAL INH SCH ×4 (07:03→19:47)
[2017-10-13] MEDS: POT PHOSPHATE MONOBASIC W/ SOD TAB PO SCH ×4 (08:12→21:04)
[2017-10-13] MEDS: FLUTICASONE/SALMETEROL 100/50 (ADVAIR) 14 PUFF/1 INHALER INH SCH ×2 (08:12→21:04)
[2017-10-13] MEDS: FLUTICASONE PROPIONATE NA SPR 16 GM BTL SCH (08:12)
[2017-10-13] MEDS: NICOTINE 7 MG/24 HR TDSY TD SCH (08:13)
[2017-10-13] MEDS: THIAMINE HCL 100 MG TAB PO SCH ×3 (08:13→21:04)
[2017-10-13 08:27] LABS: HEPATITIS A IGM TC 51813E NON-REACTIVE (NON-REACTIVE); HEPATITIS B CORE IGM TC51854R NON-REACTIVE (NON-REACTIVE)
[2017-10-13 08:53] LABS: CALCIUM 8.3 mg/dl (8.5-10.1); CREATININE 0.54 mg/dl (0.60-1.20)
[2017-10-13] MEDS ORDERED: INSULIN GLARGINE SOLOSTAR 100 UNITS/ML 3 ML PEN SC SCH (09:00)
[2017-10-13 09:03] LABS: POTASSIUM 3.7 mmol/L (3.5-5.1)
[2017-10-13] MEDS: CHLORDIAZEPOXIDE 50MG 1ST DOSE PO SCH ×3 (10:29→21:03)
--- NOTE | 2017-10-13 11:02 | Critical Care Progress Note ---
Critical Care Progress Note Date of Service Oct 13, 2017. ICU Day ICU Day Number: [address] Hudson Subjective Found patient sleeping comfortably for the majority of the morning. Per nursing discussion by notes and in person, the patient had episodes of visual hallucinations of snakes as well as yelling, being argumentative, and swinging at the staff. She was placed on a one-to-one. Nursing reevaluation she was a bit calmer later in the morning, taking her medication, but then going back to sleep. Yesterday evening we had a discussion about general alcohol cessation. Patient states that she was a bit reluctant to do this because she is alcohol as a means of making her general aches and pains feel better. At that time, the patient was not belligerent and did not appear to be hallucinating in any way. Objective General Appearance: See HPI note. Patient sleeping comfortably this morning. NAD. CV: +S1S2 RRR, no murmur. Pulm: Mild decreased breath sounds throughout, prolonged expiratory phase, no rales/rhonchi appreciated. [Roughly unchanged from yesterday]. Abdomen: +BS, soft, non-tender, non-distended. Extremities: No pedal edema or calf tenderness. [Reportedly moving all extremities naturally and easily last night.] Neuro: No gross neuro deficits on yesterday evening's exam. Skin: Healing abrasion to bridge of nose. Assessment & Plan 57 yo female transferred from [facility] on [id number] for severe hyponatremia and recent N/V/D. PMH: Alcohol abuse, COPD, HTN, HLD. RECEIVER/LABORER: CAM-ICU positive. PMH multiple years daily EtOH abuse, last drink 21Apr. On folate 1 mg daily and thiamine 200 mg TID. Required 6 mg ativan overnight for agitation and hallucinations. CIWA protocol in place. Otherwise would like to avoid sedating medications. See "lytes" below regarding hyponatremia, which is also likely contributing to AMS. - Ordered scheduled librium in addition to prn ativan. Pulm: PMH COPD, chronic cough, smoker. 23Apr pCXR with mild left basilar opacity, ? atelectasis. Afebrile, not tachycardic/tachypneic, good room SpO2. On duoneb QID, flonase daily, advair BID. Nicoderm patch as well. No acute issues. CVS: PMH HTN. EKG here NSR 86 with QTc 449. Reported home meds HCTZ 25 mg daily and Lisinopril 10 mg daily. Both held acutely, monitoring BP (noted some elevation). On telemetry. No acute issues. ID: Though was given initial keflex dose at OSH, no concern for UTI here on exam /labs. Afebrile, blood WBC 10. Prior lactate 1.2. C diff negative. Nasal MRSA negative. No acute issues. Endo: PMH HLD, reviewed lipid panel here. TSH normal. Transient hyperglycemia has resolved, monitoring. No acute issues. Renal/Lytes: Overall, Cr 0.47. Michael in place, monitoring UOP. - Hyponatremia: At OSH, Na 106. Likely related to chronic EtOH use (potomania) in setting of acute N/V/D. There, received NS boluses and 3% saline. Corrected to Na 124 in about 24 hours. Reversed trend via free water overnight , now Na 116. Was also given DDAVP 1 mcg. --> Start clear liquid diet (but monitor related Na intake). Continue checking BMP q4h x 24 hours. Holding IVF. - Hypokalemia: At OSH, K 2.9. No clear EKG changes. Replacing, monitoring. - Hypomagnesemia: At OSH, Mg 1.1. Replaced, monitoring. - Hypophosphatemia: Here lowest Phos 1.4. On scheduled K phos QID, monitoring. - Low chloride: At OSH, Cl 59. Replaced via NS, monitoring. - Elevated CK: CK 1480, improved with IVF. GI: PMH EtOH abuse and recent N/V/D. Has had multiple loose stools here. AST 72, ALT 49 - mild improvement on recheck. Lipase normal. RUQ u/s noted mild hepatic steatosis (see full report - including likely need for outpt surgery eval). No evidence of ascites. Hepatitis A/B/C negative. - Start CLD as noted above. Heme: Hb 11, stable. Plt 224. No acute issues. DVT prophy: Lovenox 40 q24h. SCD's. Skin: Healing abrasion to nose s/p old fall. Has some erythematous skin around bottom, treat with desitin. Lines: PIV left AC and right hand. Michael catheter. Code status: Full code for now, but wants to discuss with family. PT/OT: Deferred, consider order tomorrow. Disposition: ICU care. Critically ill. Resident Physician Supervision Note: Dr. Roy was resident physician during care of patient. I separately evaluated patient and did history and exam. I discussed the case with the resident and generally agree with the findings and plan. Patient remains critically ill due to profound hyponatremia, discontinued free water secondary to significant increase in sodium and under 24 hours. At this time she is slowly continuing to correct I have liberalized her diet further to a regular diet we will continue to monitor at this time Patient was discussed on multidisciplinary rounds I have personally spent 35 minutes of critical care time in the direct management of this patient. This is a life/limb threatening event. This includes time spent evaluating patient, direct bedside care, chart review, placing orders, interpretation of diagnostic studies, discussion with consultants, patient, and/or family members regarding treatment decisions, as well as other required patient management activities. This time is exclusive of all separately billable procedures, and teaching time and separate from and in addition to any other critical care service time. Documented By: Solomon Hudson DO Consults & Procedures Consultants: None. Procedures: - 23Apr pCXR. - 23Apr abdomen u/s x 2. Data Medications: Current Inpatient Medications Medications (Trade) Dose Ordered Sig/Anirudh Route Start Time Stop Time Status Last Admin Dose Admin Enoxaparin Sodium (Lovenox Inj) 40 mg Q24H SQ 10/11/17 21:00 11/10/17 20:59 10/12/17 20:59 40 MG Acetaminophen (Tylenol Tab) 650 mg Q4H PRN PO 10/11/17 20:00 11/10/17 19:59 Lorazepam (Ativan Inj) PRN Dosing -Active Protocol Q1H PRN IV 10/11/17 20:00 11/10/17 19:59 10/13/17 02:02 3 MG Nicotine (Nicoderm Cq 7 Mg Patch) 1 patch QAM TD 10/12/17 09:00 11/11/17 08:59 10/13/17 08:13 1 PATCH Miscellaneous (Remove Nicoderm Patch) 1 ea HS N/A 10/12/17 21:00 5/23/18 20:59 10/12/17 20:58 1 EA Albuterol/ Ipratropium (Duoneb) 3 ml QIDR INH 10/12/17 08:00 11/11/17 07:59 10/13/17 07:03 3 ML Salmeterol Xinafoate/ Fluticasone (Advair Diskus 100/50 Inh) 1 puff BID INH 10/11/17 21:00 11/10/17 20:59 10/13/17 08:12 1 PUFF Potassium/ Phosphorus/Sodium (Phospha 250 Neutral 155-852-130 Mg) 2 tab QID PO 10/12/17 09:00 11/11/17 08:59 10/13/17 08:12 2 TAB Fluticasone Propionate (Flonase Nasal Holiday) 2 sprays DAILY NA 10/12/17 09:00 11/11/17 08:59 10/13/17 08:12 2 SPRAYS Thiamine HCl (Vitamin B-1 Tab) 200 mg TID PO 10/12/17 14:00 11/11/17 13:59 10/13/17 08:13 200 MG Folic Acid (Folvite Tab) 1 mg QAM PO 10/13/17 09:00 11/12/17 08:59 10/13/17 08:14 1 MG Chlordiazepoxide (Librium Cap) 50 mg Q6H PO 10/13/17 09:00 10/14/17 03:01 Vital Signs: Date Time Temp Pulse Resp B/P (MAP) Pulse Ox O2 Delivery O2 Flow Rate FiO2 10/13/17 10:01 91 22 120/82 (95) 92 Room Air 10/13/17 10:00 87 26 92 10/13/17 09:30 89 24 91 10/13/17 09:01 84 24 109/78 (88) 93 Room Air 10/13/17 09:00 85 24 92 10/13/17 08:30 Room Air 10/13/17 08:30 86 24 92 10/13/17 08:01 37.1 89 24 108/79 (89) 91 Room Air 10/13/17 08:00 88 23 91 10/13/17 07:30 88 27 92 10/13/17 07:06 86 20 93 Room Air 10/13/17 07:01 87 24 131/85 (100) 93 10/13/17 07:00 85 24 93 10/13/17 06:01 95 17 155/104 (121) 93 Room Air 10/13/17 05:01 82 25 154/84 (107) 95 Room Air 10/13/17 04:01 37.0 89 24 118/72 (87) 95 Room Air 10/13/17 04:00 Room Air 10/13/17 03:01 88 20 136/92 (107) 96 Room Air 10/13/17 02:22 90 24 126/80 (95) 98 Room Air 10/13/17 02:01 37.0 90 26 142/101 (115) 94 Room Air 10/13/17 01:01 89 27 124/93 (103) 97 Room Air 10/13/17 00:03 37.1 117 27 123/ (41) 96 Room Air 103 10/13/17 00:01 Room Air 10/12/17 22:02 110 24 127/92 (104) 96 10/12/17 21:02 93 23 150/103 (119) 100 10/12/17 21:02 91 20 98 Room Air 10/12/17 20:01 37.2 91 23 107/77 (87) 92 10/12/17 20:00 94 Room Air 10/12/17 19:00 94 27 141/93 (109) 96 10/12/17 18:16 99 23 113/84 (94) 95 10/12/17 17:34 96 23 142/95 (111) 95 10/12/17 17:22 107 24 142/95 (111) 99 10/12/17 16:01 37.0 108 26 127/89 (102) 96 Room Air 10/12/17 16:00 94 Room Air 10/12/17 15:21 94 18 94 Room Air 10/12/17 14:00 98 97 10/12/17 13:01 142 22 128/94 (105) 92 Room Air 10/12/17 13:00 93 23 10/12/17 11:49 Room Air 10/12/17 11:44 37.0 84 18 104/68 (80) Room Air 10/12/17 11:38 85 18 90 Room Air 10/12/17 11:00 97 23 Laboratory Results: Last 24 Hours Test 10/12/17 11:47 4/23/18 15:53 10/12/17 20:40 10/12/17 23:54 Sodium Level 123 mmol/L 124 mmol/L 123 mmol/L 120 mmol/L Potassium Level 3.0 mmol/L 2.9 mmol/L 2.9 mmol/L 3.1 mmol/L Chloride Level 82 mmol/L 84 mmol/L 84 mmol/L 81 mmol/L Carbon Dioxide Level 34 mmol/L 31 mmol/L 31 mmol/L 29 mmol/L Anion Gap 7.0 mmol/L 9.0 mmol/L 8.0 mmol/L 10.0 mmol/L Blood Urea Nitrogen 11 mg/dl 9 mg/dl 6 mg/dl 5 mg/dl Creatinine 0.86 mg/dl 0.80 mg/dl 0.85 mg/dl 0.67 mg/dl Est Creatinine Clear Calc Drug Dose 51.2 ml/min 55.1 ml/min 51.8 ml/min 65.7 ml/min Estimated GFR () 86.3 94.2 87.5 112.3 Estimated GFR (Non- 74.5 81.3 75.5 96.9 BUN/Creatinine Ratio 13.0 11.3 7.5 7.9 Random Glucose 134 mg/dl 159 mg/dl 206 mg/dl 150 mg/dl Calcium Level 8.7 mg/dl 9.0 mg/dl 8.8 mg/dl 8.7 mg/dl Test 10/13/17 00:09 10/13/17 03:51 10/13/17 06:22 10/13/17 07:52 Bedside Glucose 202 mg/dl 117 mg/dl 122 mg/dl White Blood Count 10.00 K/uL Red Blood Count 3.44 M/uL Hemoglobin 11.3 g/dL Hematocrit 31.6 % Mean Corpuscular Volume 91.9 fL Mean Corpuscular Hemoglobin 32.8 pg Mean Corpuscular Hemoglobin Concent 35.8 g/dl Platelet Count 224 K/uL Mean Platelet Volume 9.8 fL Neutrophils (%) (Auto) 69.5 % Lymphocytes (%) (Auto) 15.1 % Monocytes (%) (Auto) 13.4 % Eosinophils (%) (Auto) 1.3 % Basophils (%) (Auto) 0.4 % Neutrophils # (Auto) 6.95 K/uL Lymphocytes # (Auto) 1.51 K/uL Monocytes # (Auto) 1.34 K/uL Eosinophils # (Auto) 0.13 K/uL Basophils # (Auto) 0.04 K/uL RDW Standard Deviation 42.2 fL RDW Coefficient of Variation 12.6 % Immature Granulocyte % (Auto) 0.3 % Immature Granulocyte # (Auto) 0.03 K/uL Sodium Level 116 mmol/L Potassium Level 3.1 mmol/L Chloride Level 81 mmol/L Carbon Dioxide Level 27 mmol/L Anion Gap 9.0 mmol/L Blood Urea Nitrogen 4 mg/dl Creatinine 0.47 mg/dl Est Creatinine Clear Calc Drug Dose 93.7 ml/min Estimated GFR () 126.2 Estimated GFR (Non- 108.9 BUN/Creatinine Ratio 7.8 Random Glucose 123 mg/dl Calcium Level 8.0 mg/dl Phosphorus Level 2.5 mg/dl Magnesium Level 1.3 mg/dl Test 10/13/17 08:07 Sodium Level 116 mmol/L Potassium Level 3.7 mmol/L Chloride Level 80 mmol/L Carbon Dioxide Level 27 mmol/L Anion Gap 9.0 mmol/L Blood Urea Nitrogen 3 mg/dl Creatinine 0.54 mg/dl Est Creatinine Clear Calc Drug Dose 81.6 ml/min Estimated GFR () 120.6 Estimated GFR (Non- 104.0 BUN/Creatinine Ratio 4.7 Random Glucose 108 mg/dl Calcium Level 8.3 mg/dl Resident Tracking Resident Involvement: Resident Care Provided Care Provided: Adult Hospital Medicine (ICU)
[2017-10-13 12:30] LABS: HEMOGLOBIN A1C 5.5 % (4.5-5.6)
[2017-10-13 12:38] LABS: CREATININE 0.56 mg/dl (0.60-1.20); POTASSIUM 4.1 mmol/L (3.5-5.1)
--- NOTE | 2017-10-13 16:33 | Progress Note ---
Subjective Date of Service: Oct 13, 2017. Subjective Pt evaluation today including: conversation w/ patient, physical exam, chart review, lab review, review of studies, conversation w/ forestry consultant, review of inpatient medication list Nurse reported patient was agitated last night, required 3 mg of Ativan, and currently when I see her she is a sleepy, Problem List Medical Problems: (1) Dehydration with hyponatremia Status: Acute (2) Hypokalemia Status: Acute (3) Hypomagnesemia Status: Acute (4) Hyponatremia Status: Acute (5) Nausea vomiting and diarrhea Status: Acute (6) Tobacco abuse Status: Chronic Social History Problems: (1) Alcohol abuse Status: Chronic Review of Systems Constitutional: + problem reported (Otherwise not able to obtain because patient is sleep), No see HPI, No fever, No chills, No sweats, No weight loss Objective Vital Signs Date Time Temp Pulse Resp B/P (MAP) Pulse Ox O2 Delivery O2 Flow Rate FiO2 10/13/17 15:45 Room Air 10/13/17 15:24 106 20 95 Room Air 10/13/17 13:01 100 32 99/81 (87) 94 Room Air 10/13/17 13:00 98 24 94 10/13/17 12:15 Room Air 10/13/17 12:00 36.8 115 22 113/88 (96) 93 10/13/17 11:24 93 20 93 Room Air 10/13/17 11:01 89 11 110/76 (87) 92 Room Air 10/13/17 11:00 87 15 93 10/13/17 10:01 91 22 120/82 (95) 92 Room Air 10/13/17 10:00 87 26 92 10/13/17 09:30 89 24 91 10/13/17 09:01 84 24 109/78 (88) 93 Room Air 10/13/17 09:00 85 24 92 10/13/17 08:30 Room Air 10/13/17 08:30 86 24 92 10/13/17 08:01 37.1 89 24 108/79 (89) 91 Room Air 10/13/17 08:00 Room Air 10/13/17 08:00 88 23 91 10/13/17 07:30 88 27 92 10/13/17 07:06 86 20 93 Room Air 10/13/17 07:01 87 24 131/85 (100) 93 10/13/17 07:00 85 24 93 10/13/17 06:01 95 17 155/104 (121) 93 Room Air 10/13/17 05:01 82 25 154/84 (107) 95 Room Air 10/13/17 04:01 37.0 89 24 118/72 (87) 95 Room Air 10/13/17 04:00 Room Air 10/13/17 03:01 88 20 136/92 (107) 96 Room Air 10/13/17 02:22 90 24 126/80 (95) 98 Room Air 10/13/17 02:01 37.0 90 26 142/101 (115) 94 Room Air 10/13/17 01:01 89 27 124/93 (103) 97 Room Air 10/13/17 00:03 37.1 117 27 123/ (41) 96 Room Air 103 10/13/17 00:01 Room Air 10/12/17 22:02 110 24 127/92 (104) 96 10/12/17 21:02 93 23 150/103 (119) 100 10/12/17 21:02 91 20 98 Room Air 10/12/17 20:01 37.2 91 23 107/77 (87) 92 10/12/17 20:00 94 Room Air 10/12/17 19:00 94 27 141/93 (109) 96 10/12/17 18:16 99 23 113/84 (94) 95 10/12/17 17:34 96 23 142/95 (111) 95 10/12/17 17:22 107 24 142/95 (111) 99 Physical Exam General Appearance: WD/WN, no apparent distress, + thin Eyes: normal inspection, PERRL, EOMI, sclerae normal ENT: normal ENT inspection, hearing grossly normal, pharynx normal Neck: supple, no adenopathy, thyroid normal, no JVD, no carotid bruits, trachea midline Respiratory/Chest: chest non-tender, lungs clear, normal breath sounds, no respiratory distress, no accessory muscle use, + wheezing (Occasional) Cardiovascular: regular rate, rhythm, no edema, no gallop, no JVD, no murmur Abdomen: normal bowel sounds, non tender, soft, no organomegaly, no pulsatile mass Extremities: normal range of motion, non-tender, normal inspection, no pedal edema, no calf tenderness, normal capillary refill, pelvis stable Neurologic/Psychiatric: bog cutter II-XII nml as tested, no motor/sensory deficits, alert, normal mood/affect, oriented x 3 Skin: normal color, warm/dry, no rash Lymphatic: no adenopathy Laboratory Results Last 24 Hours Test 10/12/17 20:40 10/12/17 23:54 10/13/17 00:09 10/13/17 03:51 Sodium Level 123 mmol/L 120 mmol/L 116 mmol/L Potassium Level 2.9 mmol/L 3.1 mmol/L 3.1 mmol/L Chloride Level 84 mmol/L 81 mmol/L 81 mmol/L Carbon Dioxide Level 31 mmol/L 29 mmol/L 27 mmol/L Anion Gap 8.0 mmol/L 10.0 mmol/L 9.0 mmol/L Blood Urea Nitrogen 6 mg/dl 5 mg/dl 4 mg/dl Creatinine 0.85 mg/dl 0.67 mg/dl 0.47 mg/dl Est Creatinine Clear Calc Drug Dose 51.8 ml/min 65.7 ml/min 93.7 ml/min Estimated GFR () 87.5 112.3 126.2 Estimated GFR (Non- 75.5 96.9 108.9 BUN/Creatinine Ratio 7.5 7.9 7.8 Random Glucose 206 mg/dl 150 mg/dl 123 mg/dl Calcium Level 8.8 mg/dl 8.7 mg/dl 8.0 mg/dl Bedside Glucose 202 mg/dl White Blood Count 10.00 K/uL Red Blood Count 3.44 M/uL Hemoglobin 11.3 g/dL Hematocrit 31.6 % Mean Corpuscular Volume 91.9 fL Mean Corpuscular Hemoglobin 32.8 pg Mean Corpuscular Hemoglobin Concent 35.8 g/dl Platelet Count 224 K/uL Mean Platelet Volume 9.8 fL Neutrophils (%) (Auto) 69.5 % Lymphocytes (%) (Auto) 15.1 % Monocytes (%) (Auto) 13.4 % Eosinophils (%) (Auto) 1.3 % Basophils (%) (Auto) 0.4 % Neutrophils # (Auto) 6.95 K/uL Lymphocytes # (Auto) 1.51 K/uL Monocytes # (Auto) 1.34 K/uL Eosinophils # (Auto) 0.13 K/uL Basophils # (Auto) 0.04 K/uL RDW Standard Deviation 42.2 fL RDW Coefficient of Variation 12.6 % Immature Granulocyte % (Auto) 0.3 % Immature Granulocyte # (Auto) 0.03 K/uL Phosphorus Level 2.5 mg/dl Magnesium Level 1.3 mg/dl Test 10/13/17 06:22 10/13/17 07:52 10/13/17 08:07 10/13/17 11:19 Bedside Glucose 117 mg/dl 122 mg/dl 97 mg/dl Sodium Level 116 mmol/L Potassium Level 3.7 mmol/L Chloride Level 80 mmol/L Carbon Dioxide Level 27 mmol/L Anion Gap 9.0 mmol/L Blood Urea Nitrogen 3 mg/dl Creatinine 0.54 mg/dl Est Creatinine Clear Calc Drug Dose 81.6 ml/min Estimated GFR () 120.6 Estimated GFR (Non- 104.0 BUN/Creatinine Ratio 4.7 Random Glucose 108 mg/dl Calcium Level 8.3 mg/dl Test 10/13/17 11:43 10/13/17 16:11 Sodium Level 118 mmol/L Potassium Level 4.1 mmol/L Chloride Level 83 mmol/L Carbon Dioxide Level 27 mmol/L Anion Gap 8.0 mmol/L Blood Urea Nitrogen 3 mg/dl Creatinine 0.56 mg/dl Est Creatinine Clear Calc Drug Dose 78.7 ml/min Estimated GFR () 119.1 Estimated GFR (Non- 102.8 BUN/Creatinine Ratio 4.9 Random Glucose 90 mg/dl Estimated Average Glucose 111 mg/dl Hemoglobin A1c 5.5 % Calcium Level 9.0 mg/dl Magnesium Level 2.2 mg/dl Assessment and Plan A 57-year-old white female transferred from [facility] on October 11/2018 because of Severe hyponatremia Severe hyponatremia, likely from alcohol intake: stable , better, 114 to 118 current Alcohol abuse disorder, possible early of alcohol withdrawal, stable for now, Ativan as needed Severe hypokalemia: replaced and follow up Severe hypomagnesemia: resolved History of chronic obstructive pulmonary disease and tobacco abuse disorder: stable , continue neb, advair Possible urinary tract infection with mild leukocytosis. History of dyslipidemia. History of hypertension: currently is borderline low bp, hold home BP med folic acid deficiency: replacing PLAN: Continue current care, no IV fluid,, watch lyes, cautious not to revise sodium too fast, no free water restriction now discussed with ICU team GI and DVT prophylaxis is covered. full code. Continued [facility] stay due to: multiple IV medications needed Discharge planning: uncertain
[2017-10-13 16:56] LABS: CALCIUM 8.9 mg/dl (8.5-10.1); CREATININE 0.62 mg/dl (0.60-1.20)
[2017-10-13 20:53] LABS: CALCIUM 8.6 mg/dl (8.5-10.1); CREATININE 0.74 mg/dl (0.60-1.20); POTASSIUM 4.3 mmol/L (3.5-5.1)
[2017-10-13] MEDS: ENOXAPARIN 40 MG/0.4 ML SYR SQ SCH (21:04)
[2017-10-14] VITALS (17 sets, daily range): BP systolic 87–125; BP diastolic 59–90; PULSE 96–118; TEMP 36.7–37.5; O2SAT 88–97
[2017-10-14 00:49] LABS: CALCIUM 8.6 mg/dl (8.5-10.1); CREATININE 0.73 mg/dl (0.60-1.20); POTASSIUM 3.4 mmol/L (3.5-5.1)
[2017-10-14] MEDS ORDERED: POTASSIUM CHLORIDE 20 MEQ TABCR PO STA (01:17)
[2017-10-14] MEDS: CHLORDIAZEPOXIDE 50MG 1ST DOSE PO SCH (04:00)
[2017-10-14 04:23] LABS: BASO % 0.4 %; BASO ABS # 0.03 K/uL (0-0.2); EOS ABS # 0.16 K/uL (0-0.5); HEMATOCRIT 34.8 % (37-47); HEMOGLOBIN 12.5 g/dL (12.0-16.0); IG# 0.02 K/uL (0.00-0.02); LYMPH % 21.6 %; LYMPH ABS # 1.73 K/uL (1.2-3.4); MEAN CELL VOLUME 92.1 fL (80-100); MEAN CORPUSCULAR HEMOGLOBIN 33.1 pg (25-34); MEAN CORPUSCULAR HGB CONC 35.9 g/dl (32-36); MEAN PLATELET VOLUME 9.2 fL (7.4-10.4); MONO % 15.7 %; MONO ABS # 1.26 K/uL (0.11-0.59); NEUT % 60.1 %; NEUT ABS # 4.81 K/uL (1.4-6.5); PLATELET COUNT 254 K/uL (130-400); RED CELL DISTRIBUTION WIDTH CV 12.9 % (11.5-14.5); RED CELL DISTRIBUTION WIDTH SD 43.4 fL (36.4-46.3); WHITE BLOOD COUNT 8.01 K/uL (4.8-10.8)
[2017-10-14 04:47] LABS: CALCIUM 8.7 mg/dl (8.5-10.1); CREATININE 0.61 mg/dl (0.60-1.20); PHOSPHORUS 5.5 mg/dl (2.5-4.9); POTASSIUM 3.7 mmol/L (3.5-5.1)
[2017-10-14] MEDS ORDERED: CHLORDIAZEPOXIDE 25 MG CAP ONE (05:14)
[2017-10-14] MEDS: ALBUT/IPRATROP 3MG/0.5MG NEB 3 ML VIAL INH SCH (07:02)
[2017-10-14 08:17] LABS: CALCIUM 8.8 mg/dl (8.5-10.1); CREATININE 0.59 mg/dl (0.60-1.20); POTASSIUM 4.2 mmol/L (3.5-5.1)
[2017-10-14] MEDS: THIAMINE HCL 100 MG TAB PO SCH ×3 (08:18→21:45)
[2017-10-14] MEDS: FLUTICASONE/SALMETEROL 100/50 (ADVAIR) 14 PUFF/1 INHALER INH SCH ×2 (08:19→21:43)
[2017-10-14] MEDS: FLUTICASONE PROPIONATE NA SPR 16 GM BTL SCH (08:19)
[2017-10-14] MEDS: NICOTINE 7 MG/24 HR TDSY TD SCH (08:20)
[2017-10-14] MEDS ORDERED: ALBUT/IPRATROP 3MG/0.5MG NEB 3 ML VIAL INH ONE (08:45)
[2017-10-14] MEDS ORDERED: ALBUT/IPRATROP 3MG/0.5MG NEB 3 ML VIAL INH PRN (08:45)
--- NOTE | 2017-10-14 11:06 | Critical Care Progress Note ---
Critical Care Progress Note Date of Service Oct 14, 2017. Attending Dr. Hudson Subjective Found patient just waking up early in the morning. Her only current concern was an ongoing cough. She denies any pain or other acute concerns. Objective General Appearance: Awake, alert, oriented to person and place but not quite time (July 2017). Ongoing cough but appears in NAD. CV: +S1S2 borderline but regular tachycardia, no murmur. Pulm: Mild decreased breath sounds throughout, prolonged expiratory phase, no rales/rhonchi appreciated. [Roughly unchanged over past 48 hours]. Abdomen: +BS, soft, non-tender, non-distended. Extremities: No pedal edema or calf tenderness. Moving all extremities naturally and easily. Neuro: No gross neuro deficits. Skin: Healing abrasion to bridge of nose. Assessment & Plan 57 yo female transferred from [facility] on [id number] for severe hyponatremia and recent N/V/D. PMH: Alcohol abuse, COPD, HTN, HLD. 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 PMH multiple years daily EtOH abuse, last drink 21Apr. On folate 1 mg daily and thiamine 200 mg TID. No further reported hallucinations. CIWA protocol in place. Otherwise would like to avoid sedating medications. See "lytes" below regarding hyponatremia, which is also likely contributing to AMS. On scheduled Librium and prn Ativan. Pulm: PMH COPD, chronic cough, smoker. 23Apr pCXR with mild left basilar opacity, ? atelectasis. Afebrile, some mild tachycardia and tachypnea, and on 2 L NC oxygen. On duoneb QID, flonase daily, advair BID. Nicoderm patch as well. -Will add duonebs prn cough as well. CVS: PMH HTN. EKG here NSR 86 with QTc 449. Reported home meds HCTZ 25 mg daily and Lisinopril 10 mg daily. Both held acutely, monitoring BP (now some relative hypotension). On telemetry. Monitoring ID: Though was given initial keflex dose at OSH, no concern for UTI here on exam /labs. Afebrile, blood WBC 8. Prior lactate 1.2. C diff negative. Nasal MRSA negative. No acute issues. Endo: PMH HLD, reviewed lipid panel here. TSH normal. Transient hyperglycemia has resolved, monitoring. No acute issues. Renal/Lytes: Overall, Cr 0.6. Michael in place, monitoring UOP. - Hyponatremia: At OSH, Na 106. Likely related to chronic EtOH use (potomania) in setting of acute N/V/D. There, received NS boluses and 3% saline. Corrected to Na 124 in about 24 hours. Reversed trend via free water, then regular diet. Current Na 127. Goal for next 24 hours is 135. --> Continue checking BMP q4h x 24 hours. Holding IVF. - Hypokalemia: At OSH, K 2.9. No clear EKG changes. Replacing, monitoring. - Hypomagnesemia: At OSH, Mg 1.1. Replaced, monitoring. - Hypophosphatemia: Here lowest Phos 1.4. Now phos 5.5, so will hold her Phos supplement. - Low chloride: At OSH, Cl 59. Replaced via NS, monitoring. - Elevated CK: CK 1480, improved with IVF. GI: PMH EtOH abuse and recent N/V/D. Has had multiple loose stools here. AST 72, ALT 49 - mild improvement on recheck. Lipase normal. RUQ u/s noted mild hepatic steatosis (see full report - including likely need for outpt surgery eval). No evidence of ascites. Hepatitis A/B/C negative. Advanced to regular diet. Heme: Hb 12, stable. Plt 254. No acute issues. DVT prophy: Lovenox 40 q24h. SCD's. Skin: Healing abrasion to nose s/p old fall. Has some erythematous skin around bottom, treat with desitin. Lines: PIV left AC and right hand. Michael catheter. Code status: Full code for now, but wants to discuss with family. PT/OT: Deferred, consider beginning today. Disposition: ICU care. Consider transfer to telemetry this evening. Resident Physician Supervision Note: Dr. Roy was resident physician during care of patient. I separately evaluated patient and did history and exam. I discussed the case with the resident and generally agree with the findings and plan. Patient was discussed on multidisciplinary rounds Significant improvement in mental status, not requiring additional breakthrough Ativan while still hyponatremic significant improvement and would allow her to move into normal ranges today. Adding additional salt tabs stable for downgrade out of ICU. I discussed the case with the hospitalist service Documented By: Solomon Hudson DO Consults & Procedures Consultants: None. Procedures: - 23Apr pCXR. - 23Apr abdomen u/s x 2. Data Medications: Current Inpatient Medications Medications (Trade) Dose Ordered Sig/Anirudh Route Start Time Stop Time Status Last Admin Dose Admin Enoxaparin Sodium (Lovenox Inj) 40 mg Q24H SQ 10/11/17 21:00 11/10/17 20:59 10/13/17 21:04 40 MG Acetaminophen (Tylenol Tab) 650 mg Q4H PRN PO 10/11/17 20:00 11/10/17 19:59 Lorazepam (Ativan Inj) PRN Dosing -Active Protocol Q1H PRN IV 10/11/17 20:00 11/10/17 19:59 10/13/17 15:45 1 MG Nicotine (Nicoderm Cq 7 Mg Patch) 1 patch QAM TD 10/12/17 09:00 11/11/17 08:59 10/14/17 08:20 1 PATCH Miscellaneous (Remove Nicoderm Patch) 1 ea HS N/A 10/12/17 21:00 11/11/17 20:59 10/12/17 20:58 1 EA Salmeterol Xinafoate/ Fluticasone (Advair Diskus 100/50 Inh) 1 puff BID INH 10/11/17 21:00 11/10/17 20:59 10/14/17 08:19 1 PUFF Fluticasone Propionate (Flonase Nasal [place]) 2 sprays DAILY NA 10/12/17 09:00 11/11/17 08:59 10/14/17 08:19 2 SPRAYS Thiamine HCl (Vitamin B-1 Tab) 200 mg TID PO 10/12/17 14:00 11/11/17 13:59 10/14/17 08:18 200 MG Folic Acid (Folvite Tab) 1 mg QAM PO 10/13/17 09:00 11/12/17 08:59 10/14/17 08:19 1 MG Chlordiazepoxide (Librium Cap) 50 mg Q8H PO 10/14/17 14:00 10/15/17 06:01 Chlordiazepoxide (Librium Cap) 25 mg Q8H PO 4/26/18 14:00 10/16/17 06:01 Chlordiazepoxide (Librium Cap) 10 mg Q12H PO 10/16/17 18:00 10/17/17 06:01 Albuterol/ Ipratropium (Duoneb) 3 ml Q6H PRN INH 10/14/17 08:45 11/13/17 08:44 Vital Signs: Date Time Temp Pulse Resp B/P (MAP) Pulse Ox O2 Delivery O2 Flow Rate FiO2 10/14/17 10:00 106 26 96/68 (77) 95 Nasal Cannula 2.0 10/14/17 08:00 37.2 96 26 91/63 (72) 97 Nasal Cannula 2.0 10/14/17 08:00 Room Air 10/14/17 07:02 109 22 96 Nasal Cannula 2.0 10/14/17 06:01 100 25 87/64 (72) 97 Nasal Cannula 2.0 10/14/17 05:01 98 38 101/62 (75) 90 10/14/17 04:01 37.0 99 20 95/69 (78) 91 Room Air 10/14/17 04:00 Room Air 10/14/17 03:01 104 28 114/59 (77) 89 10/14/17 02:48 104 31 96/65 (75) 88 10/14/17 01:01 108 33 109/61 (77) 10/14/17 00:01 37.0 112 34 105/76 (86) 96 Room Air 10/13/17 23:59 Room Air 10/13/17 23:01 118 35 95/72 (80) 93 10/13/17 22:01 118 36 114/81 (92) 94 Room Air 10/13/17 21:01 124 28 147/102 (117) 95 10/13/17 20:01 36.9 121 19 117/82 (94) 100 Room Air 10/13/17 20:00 Room Air 10/13/17 19:50 118 22 93 Room Air 10/13/17 19:01 122 17 136/97 (110) 92 10/13/17 17:01 108 33 107/74 (85) 94 10/13/17 17:00 117 22 94 10/13/17 16:01 37.1 108 15 124/85 (98) 94 Room Air 10/13/17 16:00 110 24 95 10/13/17 15:45 Room Air 10/13/17 15:24 106 20 95 Room Air 10/13/17 15:01 102 24 143/109 (120) 94 10/13/17 15:00 108 13 95 10/13/17 14:02 109 26 129/92 (104) 94 10/13/17 14:00 108 21 94 10/13/17 13:01 100 32 99/81 (87) 94 Room Air 10/13/17 13:00 98 24 94 10/13/17 12:15 Room Air 10/13/17 12:00 36.8 115 22 113/88 (96) 93 10/13/17 11:24 93 20 93 Room Air 10/13/17 11:01 89 11 110/76 (87) 92 Room Air 10/13/17 11:00 87 15 93 Laboratory Results: Last 24 Hours Test 10/13/17 11:19 10/13/17 11:43 10/13/17 16:11 10/13/17 20:00 Bedside Glucose 97 mg/dl Sodium Level 118 mmol/L 119 mmol/L 122 mmol/L Potassium Level 4.1 mmol/L 4.0 mmol/L 4.3 mmol/L Chloride Level 83 mmol/L 85 mmol/L 86 mmol/L Carbon Dioxide Level 27 mmol/L 25 mmol/L 27 mmol/L Anion Gap 8.0 mmol/L 10.0 mmol/L 9.0 mmol/L Blood Urea Nitrogen 3 mg/dl 2 mg/dl 3 mg/dl Creatinine 0.56 mg/dl 0.62 mg/dl 0.74 mg/dl Est Creatinine Clear Calc Drug Dose 78.7 ml/min 71.0 ml/min 59.5 ml/min Estimated GFR () 119.1 115.2 103.5 Estimated GFR (Non- 102.8 99.4 89.3 BUN/Creatinine Ratio 4.9 3.5 3.4 Random Glucose 90 mg/dl 113 mg/dl 161 mg/dl Estimated Average Glucose 111 mg/dl Hemoglobin A1c 5.5 % Calcium Level 9.0 mg/dl 8.9 mg/dl 8.6 mg/dl Magnesium Level 2.2 mg/dl Test 10/13/17 23:58 10/14/17 04:09 10/14/17 07:53 Sodium Level 125 mmol/L 127 mmol/L 127 mmol/L Potassium Level 3.4 mmol/L 3.7 mmol/L 4.2 mmol/L Chloride Level 89 mmol/L 91 mmol/L 93 mmol/L Carbon Dioxide Level 28 mmol/L 29 mmol/L 27 mmol/L Anion Gap 8.0 mmol/L 7.0 mmol/L 8.0 mmol/L Blood Urea Nitrogen 4 mg/dl 5 mg/dl 4 mg/dl Creatinine 0.73 mg/dl 0.61 mg/dl 0.59 mg/dl Est Creatinine Clear Calc Drug Dose 60.3 ml/min 72.2 ml/min 74.7 ml/min Estimated GFR () 105.2 115.8 117.1 Estimated GFR (Non- 90.8 99.9 101.0 BUN/Creatinine Ratio 6.1 8.7 7.5 Random Glucose 138 mg/dl 109 mg/dl 112 mg/dl Calcium Level 8.6 mg/dl 8.7 mg/dl 8.8 mg/dl White Blood Count 8.01 K/uL Red Blood Count 3.78 M/uL Hemoglobin 12.5 g/dL Hematocrit 34.8 % Mean Corpuscular Volume 92.1 fL Mean Corpuscular Hemoglobin 33.1 pg Mean Corpuscular Hemoglobin Concent 35.9 g/dl Platelet Count 254 K/uL Mean Platelet Volume 9.2 fL Neutrophils (%) (Auto) 60.1 % Lymphocytes (%) (Auto) 21.6 % Monocytes (%) (Auto) 15.7 % Eosinophils (%) (Auto) 2.0 % Basophils (%) (Auto) 0.4 % Neutrophils # (Auto) 4.81 K/uL Lymphocytes # (Auto) 1.73 K/uL Monocytes # (Auto) 1.26 K/uL Eosinophils # (Auto) 0.16 K/uL Basophils # (Auto) 0.03 K/uL RDW Standard Deviation 43.4 fL RDW Coefficient of Variation 12.9 % Immature Granulocyte % (Auto) 0.2 % Immature Granulocyte # (Auto) 0.02 K/uL Phosphorus Level 5.5 mg/dl Magnesium Level 1.9 mg/dl Resident Tracking Resident Involvement: Resident Care Provided Care Provided: Adult Hospital Medicine (ICU)
[2017-10-14 12:30] LABS: CALCIUM 9.3 mg/dl (8.5-10.1); CREATININE 0.72 mg/dl (0.60-1.20); POTASSIUM 4.1 mmol/L (3.5-5.1)
[2017-10-14] MEDS: CHLORDIAZEPOXIDE 50MG Q8H DOSE PO SCH ×2 (14:39→21:44)
--- NOTE | 2017-10-14 15:02 | Progress Note ---
Subjective Date of Service: Oct 14, 2017. Subjective Pt evaluation today including: conversation w/ patient, physical exam, chart review, lab review, review of studies, conversation w/ health care consultant, review of inpatient medication list Voiding: no voiding problems Was eating breakfast, awake alert orientated, no complaints, denies anxiety and tremor, denies fever and chill, Problem List Medical Problems: (1) Dehydration with hyponatremia Status: Acute (2) Hypokalemia Status: Acute (3) Hypomagnesemia Status: Acute (4) Hyponatremia Status: Acute (5) Nausea vomiting and diarrhea Status: Acute (6) Tobacco abuse Status: Chronic Social History Problems: (1) Alcohol abuse Status: Chronic Review of Systems Constitutional: + weakness, + fatigue, No fever, No chills, No sweats, No weight loss, No problem reported Eyes: No worsening of vision, No eye pain, No redness, No discharge, No diplopia ENT: No hearing loss, No unusual epistaxis, No nasal symptoms, No sore throat, No tinnitus, No dental problems, No trouble swallowing Respiratory: No cough, No sputum, No wheezing, No shortness of breath, No dyspnea on exertion, No dyspnea at rest, No hemoptysis Cardiac: No chest pain, No orthopnea, No PND, No edema, No claudication, No palpitations Abdomen: No pain, No nausea, No vomiting, No diarrhea, No constipation Musculoskeletal: No joint pain, No muscle pain, No swelling, No calf pain Female : No dysuria, No urinary frequency, No hematuria, No incontinence, No abnormal vaginal bleeding, No vaginal discharge Neurologic: No memory loss, No paralysis, No weakness, No numbness/tingling, No vertigo, No balance problems Psychiatric: No depression symptoms, No anhedonism, No anxiety, No insomnia, No substance abuse Heme: No abnormal bleeding/bruising, No clotting problems, No swollen lymph nodes, No night sweats Endo: No fatigue, No excessive thirst, No excessive urination Skin: No rash, No itch, No new/changing skin lesions, No color change, No bleeding Objective Vital Signs Date Time Temp Pulse Resp B/P (MAP) Pulse Ox O2 Delivery O2 Flow Rate FiO2 10/14/17 14:00 108 24 114/78 (90) 92 Room Air 10/14/17 12:00 Room Air 10/14/17 12:00 37.1 118 25 109/89 (96) 96 Room Air 10/14/17 11:21 100 22 96 Room Air 10/14/17 10:00 106 26 96/68 (77) 95 Nasal Cannula 2.0 10/14/17 08:00 37.2 96 26 91/63 (72) 97 Nasal Cannula 2.0 10/14/17 08:00 Room Air 10/14/17 08:00 Room Air 10/14/17 07:02 109 22 96 Nasal Cannula 2.0 10/14/17 06:01 100 25 87/64 (72) 97 Nasal Cannula 2.0 10/14/17 05:01 98 38 101/62 (75) 90 10/14/17 04:01 37.0 99 20 95/69 (78) 91 Room Air 10/14/17 04:00 Room Air 10/14/17 03:01 104 28 114/59 (77) 89 10/14/17 02:48 104 31 96/65 (75) 88 10/14/17 01:01 108 33 109/61 (77) 10/14/17 00:01 37.0 112 34 105/76 (86) 96 Room Air 10/13/17 23:59 Room Air 10/13/17 23:01 118 35 95/72 (80) 93 10/13/17 22:01 118 36 114/81 (92) 94 Room Air 10/13/17 21:01 124 28 147/102 (117) 95 10/13/17 20:01 36.9 121 19 117/82 (94) 100 Room Air 10/13/17 20:00 Room Air 10/13/17 19:50 118 22 93 Room Air 10/13/17 19:01 122 17 136/97 (110) 92 10/13/17 17:01 108 33 107/74 (85) 94 10/13/17 17:00 117 22 94 10/13/17 16:01 37.1 108 15 124/85 (98) 94 Room Air 10/13/17 16:00 110 24 95 10/13/17 15:45 Room Air 10/13/17 15:24 106 20 95 Room Air 10/13/17 15:01 102 24 143/109 (120) 94 10/13/17 15:00 108 13 95 Physical Exam General Appearance: WD/WN, no apparent distress, + pertinent finding (Left frontal head has some bluish, from her previous fall prior to this admission) Eyes: normal inspection, PERRL, EOMI, sclerae normal ENT: normal ENT inspection, hearing grossly normal, pharynx normal Neck: supple, no adenopathy, thyroid normal, no JVD, no carotid bruits, trachea midline Respiratory/Chest: chest non-tender, normal breath sounds, no respiratory distress, no accessory muscle use, + decreased breath sounds Cardiovascular: regular rate, rhythm, no gallop, no JVD, no murmur, + pertinent finding (Trace edema) Abdomen: normal bowel sounds, non tender, soft, no organomegaly, no pulsatile mass Extremities: normal range of motion, non-tender, normal inspection, no pedal edema, no calf tenderness, normal capillary refill, pelvis stable Neurologic/Psychiatric: 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, no motor/sensory deficits, alert, normal mood/affect, oriented x 3 Skin: normal color, warm/dry, no rash Lymphatic: no adenopathy Laboratory Results Last 24 Hours Test 10/13/17 16:11 10/13/17 20:00 10/13/17 23:58 10/14/17 04:09 Sodium Level 119 mmol/L 122 mmol/L 125 mmol/L 127 mmol/L Potassium Level 4.0 mmol/L 4.3 mmol/L 3.4 mmol/L 3.7 mmol/L Chloride Level 85 mmol/L 86 mmol/L 89 mmol/L 91 mmol/L Carbon Dioxide Level 25 mmol/L 27 mmol/L 28 mmol/L 29 mmol/L Anion Gap 10.0 mmol/L 9.0 mmol/L 8.0 mmol/L 7.0 mmol/L Blood Urea Nitrogen 2 mg/dl 3 mg/dl 4 mg/dl 5 mg/dl Creatinine 0.62 mg/dl 0.74 mg/dl 0.73 mg/dl 0.61 mg/dl Est Creatinine Clear Calc Drug Dose 71.0 ml/min 59.5 ml/min 60.3 ml/min 72.2 ml/min Estimated GFR () 115.2 103.5 105.2 115.8 Estimated GFR (Non- 99.4 89.3 90.8 99.9 BUN/Creatinine Ratio 3.5 3.4 6.1 8.7 Random Glucose 113 mg/dl 161 mg/dl 138 mg/dl 109 mg/dl Calcium Level 8.9 mg/dl 8.6 mg/dl 8.6 mg/dl 8.7 mg/dl White Blood Count 8.01 K/uL Red Blood Count 3.78 M/uL Hemoglobin 12.5 g/dL Hematocrit 34.8 % Mean Corpuscular Volume 92.1 fL Mean Corpuscular Hemoglobin 33.1 pg Mean Corpuscular Hemoglobin Concent 35.9 g/dl Platelet Count 254 K/uL Mean Platelet Volume 9.2 fL Neutrophils (%) (Auto) 60.1 % Lymphocytes (%) (Auto) 21.6 % Monocytes (%) (Auto) 15.7 % Eosinophils (%) (Auto) 2.0 % Basophils (%) (Auto) 0.4 % Neutrophils # (Auto) 4.81 K/uL Lymphocytes # (Auto) 1.73 K/uL Monocytes # (Auto) 1.26 K/uL Eosinophils # (Auto) 0.16 K/uL Basophils # (Auto) 0.03 K/uL RDW Standard Deviation 43.4 fL RDW Coefficient of Variation 12.9 % Immature Granulocyte % (Auto) 0.2 % Immature Granulocyte # (Auto) 0.02 K/uL Phosphorus Level 5.5 mg/dl Magnesium Level 1.9 mg/dl Test 10/14/17 07:53 10/14/17 12:06 Sodium Level 127 mmol/L 126 mmol/L Potassium Level 4.2 mmol/L 4.1 mmol/L Chloride Level 93 mmol/L 93 mmol/L Carbon Dioxide Level 27 mmol/L 27 mmol/L Anion Gap 8.0 mmol/L 6.0 mmol/L Blood Urea Nitrogen 4 mg/dl 8 mg/dl Creatinine 0.59 mg/dl 0.72 mg/dl Est Creatinine Clear Calc Drug Dose 74.7 ml/min 61.2 ml/min Estimated GFR () 117.1 107.0 Estimated GFR (Non- 101.0 92.3 BUN/Creatinine Ratio 7.5 10.9 Random Glucose 112 mg/dl 141 mg/dl Calcium Level 8.8 mg/dl 9.3 mg/dl Assessment and Plan A 57-year-old white female transferred from [facility] on October 11/2018 because of Severe hyponatremia Severe hyponatremia, likely from alcohol intake: stable , better, 114 to 118, today's up to 126, Alcohol abuse disorder, possible early of alcohol withdrawal, stable for now, alcohol withdrawal protocol, Ativan as needed, supplement of multiple vitamin, thiamine, and folic acid Severe hypokalemia: replaced and follow up Severe hypomagnesemia: resolved History of chronic obstructive pulmonary disease and tobacco abuse disorder: stable , continue neb, advair, nicotine patch Possible urinary tract infection with mild leukocytosis. Repeat UA has no UTI, History of dyslipidemia. History of hypertension: currently is borderline low bp, hold home BP med folic acid deficiency: replacing Mild tachycardia, likely from alcohol withdrawal, will watch PLAN: Continue current care, sodium pills, regular diet, watch for electrolytes levels , transferred to [facility], PT OT, rn social work for discharge discussed with ICU team GI and DVT prophylaxis is covered. full code. Continued [facility] stay due to: home environment unsafe for pt Discharge planning: uncertain
[2017-10-14 16:21] LABS: CALCIUM 9.3 mg/dl (8.5-10.1); CREATININE 0.7 mg/dl (0.60-1.20); POTASSIUM 4.5 mmol/L (3.5-5.1)
[2017-10-14 20:38] LABS: CALCIUM 9.4 mg/dl (8.5-10.1); CREATININE 0.71 mg/dl (0.60-1.20); POTASSIUM 4.2 mmol/L (3.5-5.1)
[2017-10-14] MEDS: SODIUM CHLORIDE 1 GM TAB PO SCH (21:44)
[2017-10-14] MEDS: ENOXAPARIN 40 MG/0.4 ML SYR SQ SCH (21:45)
[2017-10-15 00:11] LABS: CALCIUM 9.5 mg/dl (8.5-10.1); CREATININE 0.68 mg/dl (0.60-1.20); POTASSIUM 4.4 mmol/L (3.5-5.1)
[2017-10-15 04:12] VITALS: BP 102/74; PULSE 96; TEMP 37; O2SAT 92
[2017-10-15 04:13] LABS: BASO % 0.5 %; BASO ABS # 0.04 K/uL (0-0.2); EOS ABS # 0.33 K/uL (0-0.5); HEMOGLOBIN 12.2 g/dL (12.0-16.0); IG# 0.02 K/uL (0.00-0.02); LYMPH % 25.4 %; MEAN CELL VOLUME 94.1 fL (80-100); MEAN CORPUSCULAR HEMOGLOBIN 32.8 pg (25-34); MEAN CORPUSCULAR HGB CONC 34.9 g/dl (32-36); MEAN PLATELET VOLUME 9.1 fL (7.4-10.4); MONO % 15.8 %; MONO ABS # 1.31 K/uL (0.11-0.59); NEUT % 54.1 %; NEUT ABS # 4.48 K/uL (1.4-6.5); PLATELET COUNT 300 K/uL (130-400); RED CELL DISTRIBUTION WIDTH CV 12.9 % (11.5-14.5); RED CELL DISTRIBUTION WIDTH SD 44.3 fL (36.4-46.3); WHITE BLOOD COUNT 8.28 K/uL (4.8-10.8)
[2017-10-15 04:34] LABS: CALCIUM 9.1 mg/dl (8.5-10.1); CREATININE 0.63 mg/dl (0.60-1.20); POTASSIUM 4.3 mmol/L (3.5-5.1)
[2017-10-15 04:45] LABS: PHOSPHORUS 3.9 mg/dl (2.5-4.9)
[2017-10-15] MEDS: CHLORDIAZEPOXIDE 50MG Q8H DOSE PO SCH (05:53)
[2017-10-15 07:12] VITALS: BP 108/76; PULSE 94; TEMP 36.9; O2SAT 90
[2017-10-15] MEDS: MULTIVITAMIN TAB PO SCH (08:14)
[2017-10-15] MEDS: FLINTSTONES COMPLETE CHEWABLE TAB PO SCH (08:14)
[2017-10-15] MEDS: THIAMINE HCL 100 MG TAB PO SCH ×3 (08:15→21:12)
[2017-10-15] MEDS: SODIUM CHLORIDE 1 GM TAB PO SCH ×2 (08:15→21:12)
[2017-10-15] MEDS: FLUTICASONE PROPIONATE NA SPR 16 GM BTL SCH (08:16)
[2017-10-15] MEDS: FLUTICASONE/SALMETEROL 100/50 (ADVAIR) 14 PUFF/1 INHALER INH SCH ×2 (08:16→21:12)
[2017-10-15] MEDS: NICOTINE 7 MG/24 HR TDSY TD SCH (08:17)
[2017-10-15] MEDS: ACETAMINOPHEN 325 MG TAB PO PRN (08:26)
[2017-10-15 11:34] VITALS: BP 111/77; PULSE 109; O2SAT 97
[2017-10-15 11:55] VITALS: BP 120/84; PULSE 93; TEMP 36.4; O2SAT 98
[2017-10-15] MEDS: CHLORDIAZEPOXIDE 25MG Q8H DOSE PO SCH ×2 (14:47→21:12)
[2017-10-15 15:02] VITALS: BP 104/74; PULSE 99; TEMP 37.2; O2SAT 96
[2017-10-15] MEDS ORDERED: NURSING VERBAL MED ORDER ONE (15:15)
[2017-10-15] MEDS: BENZONATATE 100MG CAP PO PRN (16:40)
--- NOTE | 2017-10-15 17:04 | Progress Note ---
Subjective Date of Service: Oct 15, 2017. Subjective Pt evaluation today including: conversation w/ patient, conversation w/ family , physical exam, chart review, lab review, review of studies, review of inpatient medication list In rest, report mild anxious, no tremor, poor appetite, decreased oral intake, denies nausea vomiting Problem List Medical Problems: (1) Dehydration with hyponatremia Status: Acute (2) Hypokalemia Status: Acute (3) Hypomagnesemia Status: Acute (4) Hyponatremia Status: Acute (5) Nausea vomiting and diarrhea Status: Acute (6) Tobacco abuse Status: Chronic Social History Problems: (1) Alcohol abuse Status: Chronic Review of Systems Constitutional: No fever, No chills, No sweats, No weight loss, No weakness, No fatigue, No problem reported Eyes: No worsening of vision, No eye pain, No redness, No discharge, No diplopia ENT: No hearing loss, No unusual epistaxis, No nasal symptoms, No sore throat, No tinnitus, No dental problems, No trouble swallowing Respiratory: No cough, No sputum, No wheezing, No shortness of breath, No dyspnea on exertion, No dyspnea at rest, No hemoptysis Cardiac: No chest pain, No orthopnea, No PND, No edema, No claudication, No palpitations Abdomen: + see HPI, No pain, No nausea, No vomiting, No diarrhea, No constipation Musculoskeletal: No joint pain, No muscle pain, No swelling, No calf pain Female : No dysuria, No urinary frequency, No hematuria, No incontinence, No abnormal vaginal bleeding, No vaginal discharge Neurologic: No memory loss, No paralysis, No weakness, No numbness/tingling, No vertigo, No balance problems Psychiatric: No depression symptoms, No anhedonism, No anxiety, No insomnia, No substance abuse Heme: No abnormal bleeding/bruising, No clotting problems, No swollen lymph nodes, No night sweats Endo: No fatigue, No excessive thirst, No excessive urination Skin: No rash, No itch, No new/changing skin lesions, No color change, No bleeding Objective Vital Signs Date Time Temp Pulse Resp B/P (MAP) Pulse Ox O2 Delivery O2 Flow Rate FiO2 10/15/17 15:02 37.2 99 22 104/74 (84) 96 Room Air 10/15/17 11:55 36.4 93 20 120/84 (96) 98 Room Air 10/15/17 11:34 109 97 10/15/17 08:00 Room Air 10/15/17 07:12 36.9 94 18 108/76 (87) 90 Room Air 10/15/17 04:12 37.0 96 20 102/74 (83) 92 Room Air 10/15/17 00:02 Room Air 10/14/17 22:54 37.5 105 24 107/76 (86) 91 Room Air 10/14/17 20:10 37.1 107 20 107/71 (83) 94 Room Air Physical Exam General Appearance: WD/WN, no apparent distress, + thin Eyes: normal inspection, PERRL, EOMI, sclerae normal ENT: normal ENT inspection, hearing grossly normal, pharynx normal Neck: supple, no adenopathy, thyroid normal, no JVD, no carotid bruits, trachea midline Respiratory/Chest: chest non-tender, normal breath sounds, no respiratory distress, no accessory muscle use, + decreased breath sounds Cardiovascular: regular rate, rhythm, no edema, no gallop, no JVD, no murmur Abdomen: normal bowel sounds, non tender, soft, no organomegaly, no pulsatile mass Extremities: normal range of motion, non-tender, normal inspection, no pedal edema, no calf tenderness, normal capillary refill, pelvis stable Neurologic/Psychiatric: 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, no motor/sensory deficits, alert, normal mood/affect, oriented x 3 Skin: normal color, warm/dry, no rash Lymphatic: no adenopathy Laboratory Results Last 24 Hours Test 10/14/17 19:57 10/14/17 20:31 10/14/17 23:41 10/15/17 03:55 Sodium Level 129 mmol/L 130 mmol/L 129 mmol/L Potassium Level 4.2 mmol/L 4.4 mmol/L 4.3 mmol/L Chloride Level 95 mmol/L 97 mmol/L 98 mmol/L Carbon Dioxide Level 27 mmol/L 28 mmol/L 25 mmol/L Anion Gap 7.0 mmol/L 5.0 mmol/L 6.0 mmol/L Blood Urea Nitrogen 8 mg/dl 7 mg/dl 7 mg/dl Creatinine 0.71 mg/dl 0.68 mg/dl 0.63 mg/dl Est Creatinine Clear Calc Drug Dose 62.0 ml/min 64.8 ml/min 69.9 ml/min Estimated GFR () 108.8 111.8 114.6 Estimated GFR (Non- 93.9 96.4 98.9 BUN/Creatinine Ratio 11.8 10.4 11.0 Random Glucose 129 mg/dl 123 mg/dl 113 mg/dl Calcium Level 9.4 mg/dl 9.5 mg/dl 9.1 mg/dl Bedside Glucose 168 mg/dl White Blood Count 8.28 K/uL Red Blood Count 3.72 M/uL Hemoglobin 12.2 g/dL Hematocrit 35.0 % Mean Corpuscular Volume 94.1 fL Mean Corpuscular Hemoglobin 32.8 pg Mean Corpuscular Hemoglobin Concent 34.9 g/dl Platelet Count 300 K/uL Mean Platelet Volume 9.1 fL Neutrophils (%) (Auto) 54.1 % Lymphocytes (%) (Auto) 25.4 % Monocytes (%) (Auto) 15.8 % Eosinophils (%) (Auto) 4.0 % Basophils (%) (Auto) 0.5 % Neutrophils # (Auto) 4.48 K/uL Lymphocytes # (Auto) 2.10 K/uL Monocytes # (Auto) 1.31 K/uL Eosinophils # (Auto) 0.33 K/uL Basophils # (Auto) 0.04 K/uL RDW Standard Deviation 44.3 fL RDW Coefficient of Variation 12.9 % Immature Granulocyte % (Auto) 0.2 % Immature Granulocyte # (Auto) 0.02 K/uL Phosphorus Level 3.9 mg/dl Magnesium Level 1.8 mg/dl Test 10/15/17 07:44 10/15/17 11:20 10/15/17 16:20 Bedside Glucose 109 mg/dl 149 mg/dl 125 mg/dl Assessment and Plan A 57-year-old white female transferred from [facility] on October 11/2018 because of Severe hyponatremia Severe hyponatremia, likely from alcohol intake: stable , continue improving, today's sodium is 129, yesterday was 130 Continue fluid restriction, sodium p.o., and follow-up Alcohol abuse disorder, possible early of alcohol withdrawal, stable for now, alcohol withdrawal protocol, Ativan as needed, supplement of multiple vitamin, thiamine, and folic acid, currently new current dose is 10 mg p.o. twice daily, patient's family and herself both interested in the rehab in drug and alcohol facilities, heel caser is working on it Severe hypokalemia: replaced and follow up Severe hypomagnesemia: resolved History of chronic obstructive pulmonary disease and tobacco abuse disorder: stable , continue neb, advair, nicotine patch Possible urinary tract infection with mild leukocytosis. Repeat UA has no UTI, History of dyslipidemia. History of hypertension: currently is borderline low bp, hold home BP med folic acid deficiency: replacing Mild tachycardia, likely from alcohol withdrawal, will watch PLAN: Continue current care, MedSurg, PT OT, social media manager drug and alcohol rehab GI and DVT prophylaxis is covered. full code. Continued [facility] stay due to: home environment unsafe for pt Discharge planning: rehab hospital
[2017-10-15] MEDS: ENOXAPARIN 40 MG/0.4 ML SYR SQ SCH (21:13)
--- NOTE | 2017-10-15 22:03 | Progress Note ---
Post ICU Progress Note Date & Time Oct 15, 2017 at 22:03 Vital Signs Vital Signs Past 12 Hours Date Time Temp Pulse Resp B/P (MAP) Pulse Ox O2 Delivery O2 Flow Rate FiO2 10/15/17 16:00 Room Air 10/15/17 15:02 37.2 99 22 104/74 (84) 96 Room Air 10/15/17 11:55 36.4 93 20 120/84 (96) 98 Room Air 10/15/17 11:34 109 97 Notes Mental Status: alert / awake, participated in evaluation Nausea / Vomiting: adequately controlled Pain: adequately controlled Airway Patency, RR, SpO2: stable & adequate BP & HR: stable & adequate Kassy Ng is a 57-year-old female who was admitted to the ICU on October 11, 2017 for hyponatremia (lab value 114) likely secondary to alcoholism. Patient was successfully treated for hyponatremia as well as alcohol withdrawal during her time in the ICU and was downgraded on October 14. In the ICU patient did not require central venous access, arterial line or invasive monitoring or intubation. Sodium today is 129. Patient is alert and oriented and remains in stable condition. At this time patient has discussed with case management the possibility of drug and alcohol rehabilitation both inpatient and outpatient; no decisions have been made at this time. Consider outpatient follow up in 1 to 2 weeks with: Dr. Ilan Gaona (if discharge to in drug/alcohol rehab does not occur) Repeat imaging needed: NA Follow up cultures: NA Reviewed progress notes, labs, and inpatient medication list Continue current management Additional recommendations: NONE Patient remains hemodynamically stable and mental status has improved thus critical care will sign off at this time. Thank you for including us in the care of this patient; please feel free to reconsult as needed. CCT: 0 minutes; Level One inpatient billing not including any billable procedures. Thank you for including us in the care of this patient. Please review Dr. Solomon Hudson's addendum for further recommendations. Consults & Procedures Consultants: None. Procedures: - 23Apr pCXR. - 23Apr abdomen u/s x 2.
[2017-10-15 22:53] VITALS: BP 111/76; PULSE 93; TEMP 36.4; O2SAT 92
[2017-10-16 04:25] VITALS: BP 132/82; PULSE 102; TEMP 36.4; O2SAT 95
[2017-10-16] MEDS: CHLORDIAZEPOXIDE 25MG Q8H DOSE PO SCH (06:19)
[2017-10-16 06:32] LABS: BASO % 0.2 %; BASO ABS # 0.02 K/uL (0-0.2); EOS % 5.3 %; EOS ABS # 0.48 K/uL (0-0.5); HEMATOCRIT 33.3 % (37-47); HEMOGLOBIN 11.4 g/dL (12.0-16.0); IG# 0.03 K/uL (0.00-0.02); LYMPH % 15.2 %; LYMPH ABS # 1.37 K/uL (1.2-3.4); MEAN CELL VOLUME 95.1 fL (80-100); MEAN CORPUSCULAR HEMOGLOBIN 32.6 pg (25-34); MEAN CORPUSCULAR HGB CONC 34.2 g/dl (32-36); MEAN PLATELET VOLUME 8.8 fL (7.4-10.4); MONO % 12.4 %; MONO ABS # 1.12 K/uL (0.11-0.59); NEUT % 66.6 %; NEUT ABS # 5.98 K/uL (1.4-6.5); PLATELET COUNT 362 K/uL (130-400); RED CELL DISTRIBUTION WIDTH CV 13.1 % (11.5-14.5); RED CELL DISTRIBUTION WIDTH SD 45.5 fL (36.4-46.3)
[2017-10-16 06:57] LABS: CREATININE 0.69 mg/dl (0.60-1.20); POTASSIUM 4.2 mmol/L (3.5-5.1)
[2017-10-16 06:58] LABS: PHOSPHORUS 3.3 mg/dl (2.5-4.9)
[2017-10-16 07:04] VITALS: BP 112/77; PULSE 93; TEMP 36.5; O2SAT 93
[2017-10-16] MEDS: FLUTICASONE/SALMETEROL 100/50 (ADVAIR) 14 PUFF/1 INHALER INH SCH ×2 (07:44→20:42)
[2017-10-16] MEDS: FLUTICASONE PROPIONATE NA SPR 16 GM BTL SCH (07:44)
[2017-10-16] MEDS: FLINTSTONES COMPLETE CHEWABLE TAB PO SCH (07:44)
[2017-10-16] MEDS: SODIUM CHLORIDE 1 GM TAB PO SCH ×2 (07:45→20:41)
[2017-10-16] MEDS: THIAMINE HCL 100 MG TAB PO SCH ×3 (07:45→20:41)
[2017-10-16] MEDS: MULTIVITAMIN TAB PO SCH (07:45)
[2017-10-16] MEDS: NICOTINE 7 MG/24 HR TDSY TD SCH (07:46)
[2017-10-16] MEDS ORDERED: MAGNESIUM SULFATE 1GM / D5W 100 ML IV STA (08:35)
[2017-10-16 11:15] VITALS: BP 97/68; PULSE 94; TEMP 37; O2SAT 95
--- NOTE | 2017-10-16 15:18 | Progress Note ---
Subjective Date of Service: Oct 16, 2017. Subjective Pt evaluation today including: conversation w/ patient, conversation w/ family , physical exam, chart review, lab review, review of studies, review of inpatient medication list Report tired and fatigued, sleepy, was up eating breakfast, denies anxiety, denied tremor Problem List Medical Problems: (1) Dehydration with hyponatremia Status: Acute (2) Hypokalemia Status: Acute (3) Hypomagnesemia Status: Acute (4) Hyponatremia Status: Acute (5) Nausea vomiting and diarrhea Status: Acute (6) Tobacco abuse Status: Chronic Social History Problems: (1) Alcohol abuse Status: Chronic Review of Systems Constitutional: + weakness, + fatigue, No fever, No chills, No sweats, No weight loss, No problem reported Eyes: No worsening of vision, No eye pain, No redness, No discharge, No diplopia ENT: No hearing loss, No unusual epistaxis, No nasal symptoms, No sore throat, No tinnitus, No dental problems, No trouble swallowing Respiratory: No cough, No sputum, No wheezing, No shortness of breath, No dyspnea on exertion, No dyspnea at rest, No hemoptysis Cardiac: No chest pain, No orthopnea, No PND, No edema, No claudication, No palpitations Abdomen: No pain, No nausea, No vomiting, No diarrhea, No constipation Musculoskeletal: No joint pain, No muscle pain, No swelling, No calf pain Female : No dysuria, No urinary frequency, No hematuria, No incontinence, No abnormal vaginal bleeding, No vaginal discharge Neurologic: No memory loss, No paralysis, No weakness, No numbness/tingling, No vertigo, No balance problems Psychiatric: No depression symptoms, No anhedonism, No anxiety, No insomnia, No substance abuse Heme: No abnormal bleeding/bruising, No clotting problems, No swollen lymph nodes, No night sweats Endo: No fatigue, No excessive thirst, No excessive urination Skin: No rash, No itch, No new/changing skin lesions, No color change, No bleeding Objective Vital Signs Date Time Temp Pulse Resp B/P (MAP) Pulse Ox O2 Delivery O2 Flow Rate FiO2 10/16/17 11:15 37.0 94 20 97/68 (78) 95 Room Air 10/16/17 08:00 Room Air 10/16/17 07:04 36.5 93 17 112/77 (89) 93 Room Air 10/16/17 04:25 36.4 102 19 132/82 (99) 95 Room Air 10/16/17 00:30 Room Air 10/15/17 22:53 36.4 93 20 111/76 (88) 92 Room Air 10/15/17 16:00 Room Air Physical Exam General Appearance: WD/WN, no apparent distress, + thin Eyes: normal inspection, PERRL, EOMI, sclerae normal ENT: normal ENT inspection, hearing grossly normal, pharynx normal Neck: supple, no adenopathy, thyroid normal, no JVD, no carotid bruits, trachea midline Respiratory/Chest: chest non-tender, lungs clear, normal breath sounds, no respiratory distress, no accessory muscle use, + decreased breath sounds, + wheezing Cardiovascular: regular rate, rhythm, no edema, no gallop, no JVD, no murmur Abdomen: normal bowel sounds, non tender, soft, no organomegaly, no pulsatile mass Extremities: normal range of motion, non-tender, normal inspection, no pedal edema, no calf tenderness, normal capillary refill, pelvis stable Neurologic/Psychiatric: environmental project manager II-XII nml as tested, no motor/sensory deficits, alert, normal mood/affect, oriented x 3 Skin: normal color, warm/dry, no rash Lymphatic: no adenopathy Laboratory Results Last 24 Hours Test 10/15/17 16:20 10/15/17 20:15 10/16/17 06:12 10/16/17 07:48 Bedside Glucose 125 mg/dl 125 mg/dl 99 mg/dl White Blood Count 9.00 K/uL Red Blood Count 3.50 M/uL Hemoglobin 11.4 g/dL Hematocrit 33.3 % Mean Corpuscular Volume 95.1 fL Mean Corpuscular Hemoglobin 32.6 pg Mean Corpuscular Hemoglobin Concent 34.2 g/dl Platelet Count 362 K/uL Mean Platelet Volume 8.8 fL Neutrophils (%) (Auto) 66.6 % Lymphocytes (%) (Auto) 15.2 % Monocytes (%) (Auto) 12.4 % Eosinophils (%) (Auto) 5.3 % Basophils (%) (Auto) 0.2 % Neutrophils # (Auto) 5.98 K/uL Lymphocytes # (Auto) 1.37 K/uL Monocytes # (Auto) 1.12 K/uL Eosinophils # (Auto) 0.48 K/uL Basophils # (Auto) 0.02 K/uL RDW Standard Deviation 45.5 fL RDW Coefficient of Variation 13.1 % Immature Granulocyte % (Auto) 0.3 % Immature Granulocyte # (Auto) 0.03 K/uL Sodium Level 132 mmol/L Potassium Level 4.2 mmol/L Chloride Level 101 mmol/L Carbon Dioxide Level 26 mmol/L Anion Gap 5.0 mmol/L Blood Urea Nitrogen 9 mg/dl Creatinine 0.69 mg/dl Est Creatinine Clear Calc Drug Dose 63.8 ml/min Estimated GFR () 111.2 Estimated GFR (Non- 96.0 BUN/Creatinine Ratio 12.7 Random Glucose 97 mg/dl Calcium Level 9.0 mg/dl Phosphorus Level 3.3 mg/dl Magnesium Level 1.6 mg/dl Assessment and Plan A 57-year-old white female transferred from [facility] on October 11/2018 because of Severe hyponatremia Severe hyponatremia, likely from alcohol intake: stable , continue improving, today's sodium is 132, yesterday was 130 Continue fluid restriction, sodium p.o., and follow-up Alcohol abuse disorder, possible early of alcohol withdrawal, stable for now, alcohol withdrawal protocol, Ativan as needed, supplement of multiple vitamin, thiamine, and folic acid, currently new current dose is 10 mg p.o. twice daily, will discontinue because patient has no obvious signs of alcohol withdrawal for now, and she is so sleepy patient's family and herself both interested in the rehab in drug and alcohol facilities, case worker is working on it, will continue follow-up Severe hypokalemia: replaced and follow up Severe hypomagnesemia: Replaced History of chronic obstructive pulmonary disease and tobacco abuse disorder: stable , continue neb, advair, nicotine patch, nebulizer treatment as needed Possible urinary tract infection with mild leukocytosis. Repeat UA has no UTI, History of dyslipidemia. History of hypertension: currently is borderline low bp, hold home BP med folic acid deficiency: replacing PLAN: Continue current care, PT OT, mental health social worker drug and alcohol rehab GI and DVT prophylaxis is covered. full code. Continued [facility] stay due to: home environment unsafe for pt Discharge planning: rehab hospital
[2017-10-16 15:48] VITALS: BP 101/69; PULSE 88; TEMP 37.3; O2SAT 97
[2017-10-16] MEDS ORDERED: CHLORDIAZEPOXIDE 10MG Q12H DOSE PO SCH (18:00)
[2017-10-16] MEDS: ENOXAPARIN 40 MG/0.4 ML SYR SQ SCH (20:42)
[2017-10-17 00:30] VITALS: BP 100/64; PULSE 90; TEMP 37; O2SAT 92
[2017-10-17] MEDS: MAGNESIUM OXIDE 400 MG TAB PO SCH ×3 (03:35→22:12)
[2017-10-17 07:42] VITALS: BP 121/82; PULSE 84; TEMP 36.8; O2SAT 92
[2017-10-17 08:00] VITALS: O2SAT 92
[2017-10-17] MEDS: FLUTICASONE PROPIONATE NA SPR 16 GM BTL SCH (08:36)
[2017-10-17] MEDS: THIAMINE HCL 100 MG TAB PO SCH ×3 (08:36→22:10)
[2017-10-17] MEDS: BENZONATATE 100MG CAP PO PRN (08:36)
[2017-10-17] MEDS: MULTIVITAMIN TAB PO SCH (08:36)
[2017-10-17] MEDS: FLINTSTONES COMPLETE CHEWABLE TAB PO SCH (08:36)
[2017-10-17] MEDS: FLUTICASONE/SALMETEROL 100/50 (ADVAIR) 14 PUFF/1 INHALER INH SCH ×2 (08:36→22:10)
[2017-10-17] MEDS: SODIUM CHLORIDE 1 GM TAB PO SCH ×2 (08:36→22:10)
[2017-10-17] MEDS: NICOTINE 7 MG/24 HR TDSY TD SCH (08:37)
[2017-10-17 09:23] LABS: CALCIUM 9.2 mg/dl (8.5-10.1); CREATININE 0.81 mg/dl (0.60-1.20); POTASSIUM 4.2 mmol/L (3.5-5.1)
[2017-10-17 15:26] VITALS: BP 107/72; PULSE 96; TEMP 37.2; O2SAT 94
[2017-10-17 16:00] VITALS: O2SAT 94
--- NOTE | 2017-10-17 16:12 | Progress Note ---
Subjective Date of Service: Oct 17, 2017. Subjective Pt evaluation today including: conversation w/ patient, physical exam, chart review, lab review, review of studies, review of inpatient medication list Report tired and fatigued, however denied tremor denied anxiety, deny depressions, Problem List Medical Problems: (1) Dehydration with hyponatremia Status: Acute (2) Hypokalemia Status: Acute (3) Hypomagnesemia Status: Acute (4) Hyponatremia Status: Acute (5) Nausea vomiting and diarrhea Status: Acute (6) Tobacco abuse Status: Chronic Social History Problems: (1) Alcohol abuse Status: Chronic Review of Systems Constitutional: + weakness, + fatigue, No fever, No chills, No sweats, No weight loss, No problem reported Eyes: No worsening of vision, No eye pain, No redness, No discharge, No diplopia ENT: No hearing loss, No unusual epistaxis, No nasal symptoms, No sore throat, No tinnitus, No dental problems, No trouble swallowing Respiratory: + cough, + wheezing, No sputum, No shortness of breath, No dyspnea on exertion, No dyspnea at rest, No hemoptysis Cardiac: No chest pain, No orthopnea, No PND, No edema, No claudication, No palpitations Abdomen: No pain, No nausea, No vomiting, No diarrhea, No constipation Musculoskeletal: No joint pain, No muscle pain, No swelling, No calf pain Female : No dysuria, No urinary frequency, No hematuria, No incontinence, No abnormal vaginal bleeding, No vaginal discharge Neurologic: No memory loss, No paralysis, No weakness, No numbness/tingling, No vertigo, No balance problems Psychiatric: No depression symptoms, No anhedonism, No anxiety, No insomnia, No substance abuse Heme: No abnormal bleeding/bruising, No clotting problems, No swollen lymph nodes, No night sweats Endo: No fatigue, No excessive thirst, No excessive urination Skin: No rash, No itch, No new/changing skin lesions, No color change, No bleeding Objective Vital Signs Date Time Temp Pulse Resp B/P (MAP) Pulse Ox O2 Delivery O2 Flow Rate FiO2 10/17/17 15:26 37.2 96 20 107/72 (84) 94 Room Air 10/17/17 08:00 92 Room Air 10/17/17 07:42 36.8 84 20 121/82 (95) 92 10/17/17 00:30 37.0 90 22 100/64 (76) 92 Room Air 10/17/17 00:21 Room Air 10/16/17 20:20 Room Air Physical Exam General Appearance: WD/WN, no apparent distress Eyes: normal inspection, PERRL, EOMI, sclerae normal ENT: normal ENT inspection, hearing grossly normal, pharynx normal Neck: supple, no adenopathy, thyroid normal, no JVD, no carotid bruits, trachea midline Respiratory/Chest: chest non-tender, normal breath sounds, no respiratory distress, no accessory muscle use, + decreased breath sounds, + wheezing ( Occasional) Cardiovascular: regular rate, rhythm, no edema, no gallop, no JVD, no murmur Abdomen: normal bowel sounds, non tender, soft, no organomegaly, no pulsatile mass Extremities: normal range of motion, non-tender, normal inspection, no pedal edema, no calf tenderness, normal capillary refill, pelvis stable Neurologic/Psychiatric: trader fixed income II-XII nml as tested, no motor/sensory deficits, alert, normal mood/affect, oriented x 3 Skin: normal color, warm/dry, no rash Lymphatic: no adenopathy Laboratory Results Last 24 Hours Test 10/16/17 20:12 10/17/17 08:28 Bedside Glucose 154 mg/dl Sodium Level 133 mmol/L Potassium Level 4.2 mmol/L Chloride Level 101 mmol/L Carbon Dioxide Level 26 mmol/L Anion Gap 6.0 mmol/L Blood Urea Nitrogen 7 mg/dl Creatinine 0.81 mg/dl Est Creatinine Clear Calc Drug Dose 54.4 ml/min Estimated GFR () 92.8 Estimated GFR (Non- 80.1 BUN/Creatinine Ratio 8.7 Random Glucose 87 mg/dl Calcium Level 9.2 mg/dl Magnesium Level 2.0 mg/dl Assessment and Plan A 57-year-old white female transferred from [facility] on October 11/2018 because of Severe hyponatremia Severe hyponatremia, likely from alcohol intake: stable , continue improving, today's sodium is 133, yesterday was 132 Continue fluid restriction, sodium p.o., and follow-up Alcohol abuse disorder, possible early of alcohol withdrawal, stable for now, alcohol withdrawal protocol, Ativan as needed, supplement of multiple vitamin, thiamine, and folic acid, Was on Librium 10 mg p.o. twice daily, which was discontinued because patient has no obvious signs of alcohol withdrawal for now, Patient continued doing well, hypokalemia: Resolved History of chronic obstructive pulmonary disease and tobacco abuse disorder: stable , continue neb, advair, nicotine patch, nebulizer treatment as needed Possible urinary tract infection with mild leukocytosis. Repeat UA has no UTI, History of dyslipidemia. History of hypertension: currently is borderline low bp, hold home BP med folic acid deficiency: replacing PLAN: As above, continue current care, PT OT, social and political studies professor drug and alcohol rehab GI and DVT prophylaxis is covered. full code. Continued [facility] stay due to: home environment unsafe for pt Discharge planning: rehab hospital
[2017-10-17] MEDS: ENOXAPARIN 40 MG/0.4 ML SYR SQ SCH (22:10)
[2017-10-17 23:42] VITALS: BP 117/80; PULSE 87; TEMP 37.8; O2SAT 94
[2017-10-17] MEDS: ACETAMINOPHEN 325 MG TAB PO PRN (23:56)
[2017-10-18 01:43] VITALS: TEMP 36.8
[2017-10-18 07:16] LABS: CALCIUM 8.9 mg/dl (8.5-10.1); CREATININE 0.74 mg/dl (0.60-1.20); POTASSIUM 3.9 mmol/L (3.5-5.1)
[2017-10-18 07:18] VITALS: BP 105/70; PULSE 79; TEMP 36.5; O2SAT 94
[2017-10-18] MEDS: FLINTSTONES COMPLETE CHEWABLE TAB PO SCH (08:29)
[2017-10-18] MEDS: THIAMINE HCL 100 MG TAB PO SCH ×3 (08:29→20:14)
[2017-10-18] MEDS: SODIUM CHLORIDE 1 GM TAB PO SCH (08:30)
[2017-10-18] MEDS: MULTIVITAMIN TAB PO SCH (08:30)
[2017-10-18] MEDS: BENZONATATE 100MG CAP PO PRN ×4 (08:32→21:51)
[2017-10-18] MEDS: NICOTINE 7 MG/24 HR TDSY TD SCH (08:32)
[2017-10-18] MEDS: FLUTICASONE PROPIONATE NA SPR 16 GM BTL SCH (08:33)
[2017-10-18] MEDS: FLUTICASONE/SALMETEROL 100/50 (ADVAIR) 14 PUFF/1 INHALER INH SCH ×2 (08:33→20:14)
[2017-10-18] MEDS: MAGNESIUM OXIDE 400 MG TAB PO SCH ×2 (08:34→20:14)
--- NOTE | 2017-10-18 15:01 | Progress Note ---
Subjective Date of Service: Oct 18, 2017. Subjective Pt evaluation today including: conversation w/ patient, conversation w/ family , physical exam, chart review, lab review, review of studies, conversation w/ retail sales vitamin consultant, review of inpatient medication list Doing okay sitting in chair, denied anxiety tremors, denies nausea or vomiting, Problem List Medical Problems: (1) Dehydration with hyponatremia Status: Acute (2) Hypokalemia Status: Acute (3) Hypomagnesemia Status: Acute (4) Hyponatremia Status: Acute (5) Nausea vomiting and diarrhea Status: Acute (6) Tobacco abuse Status: Chronic Social History Problems: (1) Alcohol abuse Status: Chronic Review of Systems Constitutional: + weakness, + fatigue, No fever, No chills, No sweats, No weight loss, No problem reported Eyes: No worsening of vision, No eye pain, No redness, No discharge, No diplopia ENT: No hearing loss, No unusual epistaxis, No nasal symptoms, No sore throat, No tinnitus, No dental problems, No trouble swallowing Respiratory: No cough, No sputum, No wheezing, No shortness of breath, No dyspnea on exertion, No dyspnea at rest, No hemoptysis Cardiac: No chest pain, No orthopnea, No PND, No edema, No claudication, No palpitations Abdomen: No pain, No nausea, No vomiting, No diarrhea, No constipation Musculoskeletal: No joint pain, No muscle pain, No swelling, No calf pain Female : No dysuria, No urinary frequency, No hematuria, No incontinence, No abnormal vaginal bleeding, No vaginal discharge Neurologic: No memory loss, No paralysis, No weakness, No numbness/tingling, No vertigo, No balance problems Psychiatric: No depression symptoms, No anhedonism, No anxiety, No insomnia, No substance abuse Heme: No abnormal bleeding/bruising, No clotting problems, No swollen lymph nodes, No night sweats Endo: No fatigue, No excessive thirst, No excessive urination Skin: No rash, No itch, No new/changing skin lesions, No color change, No bleeding Objective Vital Signs Date Time Temp Pulse Resp B/P (MAP) Pulse Ox O2 Delivery O2 Flow Rate FiO2 10/18/17 08:00 Room Air 10/18/17 07:18 36.5 79 16 105/70 (82) 94 Room Air 10/18/17 01:43 36.8 10/17/17 23:59 Room Air 10/17/17 23:42 37.8 87 20 117/80 (92) 94 Room Air 10/17/17 19:54 Room Air 10/17/17 16:00 94 Room Air 10/17/17 15:26 37.2 96 20 107/72 (84) 94 Room Air Physical Exam General Appearance: WD/WN, no apparent distress Eyes: normal inspection, PERRL, EOMI, sclerae normal ENT: normal ENT inspection, hearing grossly normal, pharynx normal Neck: supple, no adenopathy, thyroid normal, no JVD, no carotid bruits, trachea midline Respiratory/Chest: chest non-tender, lungs clear, normal breath sounds, no respiratory distress, no accessory muscle use Cardiovascular: regular rate, rhythm, no edema, no gallop, no JVD, no murmur Abdomen: normal bowel sounds, non tender, soft, no organomegaly, no pulsatile mass Extremities: normal range of motion, non-tender, normal inspection, no pedal edema, no calf tenderness, normal capillary refill, pelvis stable Neurologic/Psychiatric: records coordinator II-XII nml as tested, no motor/sensory deficits, alert, normal mood/affect, oriented x 3 Skin: normal color, warm/dry, no rash Lymphatic: no adenopathy Laboratory Results Last 24 Hours Test 10/18/17 06:12 Sodium Level 136 mmol/L Potassium Level 3.9 mmol/L Chloride Level 105 mmol/L Carbon Dioxide Level 26 mmol/L Anion Gap 5.0 mmol/L Blood Urea Nitrogen 9 mg/dl Creatinine 0.74 mg/dl Est Creatinine Clear Calc Drug Dose 59.5 ml/min Estimated GFR () 103.5 Estimated GFR (Non- 89.3 BUN/Creatinine Ratio 11.9 Random Glucose 94 mg/dl Calcium Level 8.9 mg/dl Magnesium Level 2.1 mg/dl Assessment and Plan A 57-year-old white female transferred from [facility] on October 11/2018 because of Severe hyponatremia Severe hyponatremia, likely from alcohol intake: stable , continue improving, today's sodium is 136 Symptoms every day improving, will discontinue soft pill, Continue fluid restriction, sodium p.o., and follow-up Alcohol abuse disorder, possible early of alcohol withdrawal, stable for now, alcohol withdrawal protocol, Ativan as needed, supplement of multiple vitamin, thiamine, and folic acid, Was on Librium 10 mg p.o. twice daily, which was discontinued yesterday because patient has no obvious signs of alcohol withdrawal for now, Patient continued doing well, hypokalemia: Resolved History of chronic obstructive pulmonary disease and tobacco abuse disorder: stable , continue neb, advair, nicotine patch, nebulizer treatment as needed Possible urinary tract infection with mild leukocytosis. Repeat UA has no UTI, History of dyslipidemia. History of hypertension: currently is borderline low bp, hold home BP med folic acid deficiency: replacing PLAN: As above, continue current care, PT OT, social work professor drug and alcohol rehab GI and DVT prophylaxis is covered. full code. Continued [facility] stay due to: home environment unsafe for pt Discharge planning: rehab hospital
[2017-10-18 15:38] VITALS: BP 109/73; PULSE 96; TEMP 36.8; O2SAT 95
[2017-10-18] MEDS: ENOXAPARIN 40 MG/0.4 ML SYR SQ SCH (20:14)
[2017-10-18 23:38] VITALS: BP 126/83; PULSE 82; TEMP 37; O2SAT 94
[2017-10-19 07:33] VITALS: BP 107/72; PULSE 77; TEMP 36.7; O2SAT 92
[2017-10-19] MEDS: THIAMINE HCL 100 MG TAB PO SCH ×3 (07:41→20:14)
[2017-10-19] MEDS: FLINTSTONES COMPLETE CHEWABLE TAB PO SCH (07:41)
[2017-10-19] MEDS: FLUTICASONE PROPIONATE NA SPR 16 GM BTL SCH (07:41)
[2017-10-19] MEDS: FLUTICASONE/SALMETEROL 100/50 (ADVAIR) 14 PUFF/1 INHALER INH SCH ×2 (07:41→20:13)
[2017-10-19] MEDS: MULTIVITAMIN TAB PO SCH (07:42)
[2017-10-19] MEDS: NICOTINE 7 MG/24 HR TDSY TD SCH (07:42)
[2017-10-19] MEDS: MAGNESIUM OXIDE 400 MG TAB PO SCH ×2 (07:42→20:14)
[2017-10-19 09:53] LABS: CALCIUM 9.1 mg/dl (8.5-10.1); CREATININE 0.79 mg/dl (0.60-1.20); POTASSIUM 3.8 mmol/L (3.5-5.1)
--- NOTE | 2017-10-19 14:05 | Hospitalist Progress Note ---
Hospitalist Progress Note Date of Service Oct 19, 2017. Subjective Pt evaluation today including: conversation w/ patient, conversation w/ family (son Damir over the phone), physical exam, chart review, lab review, review of studies, review of inpatient medication list Patient seen and evaluated. No acute events overnight. Na levels normalized. No signs of withdrawal from ETOH. Updated patient on labs and plan. Also discussed with son Damir over the phone. Patient states she realizes she hasn't been appropriately taking care of herself. Supplementing ETOH to solve pains/insomnia. She states she drinks a lot less then she used to but drinks nearly nightly to help her sleep. She states after her fall things really got worse. Son feels that her falls are related to her drinking. He states she doesn't drink a lot but he said she easily gets intoxicated with minimal alcohol. She is in agreement to rehab at this time. Possible bed tomorrow. Son is hoping for her to leave from hospital to rehab. Medically stable for D/C pending placement Constitutional: No fever, No chills, No weakness Respiratory: No cough, No shortness of breath Cardiovascular: No chest pain Abdomen: No pain, No nausea, No vomiting, No diarrhea, No constipation Musculoskeletal: No swelling, No calf pain Female : No dysuria Psychiatric: + insomnia, No anxiety Heme: No abnormal bleeding/bruising Medications Current Inpatient Medications Medications (Trade) Dose Ordered Sig/Anirudh Route Start Time Stop Time Status Last Admin Dose Admin Enoxaparin Sodium (Lovenox Inj) 40 mg Q24H SQ 10/11/17 21:00 11/10/17 20:59 10/18/17 20:14 40 MG Acetaminophen (Tylenol Tab) 650 mg Q4H PRN PO 10/11/17 20:00 11/10/17 19:59 10/17/17 23:56 650 MG Lorazepam (Ativan Inj) PRN Dosing -Active Protocol Q1H PRN IV 10/11/17 20:00 11/10/17 19:59 10/13/17 15:45 1 MG Nicotine (Nicoderm Cq 7 Mg Patch) 1 patch QAM TD 10/12/17 09:00 11/11/17 08:59 10/19/17 07:42 1 PATCH Miscellaneous (Remove Nicoderm Patch) 1 ea HS N/A 10/12/17 21:00 11/11/17 20:59 10/18/17 21:51 1 EA Salmeterol Xinafoate/ Fluticasone (Advair Diskus 100/50 Inh) 1 puff BID INH 10/11/17 21:00 11/10/17 20:59 10/19/17 07:41 1 PUFF Fluticasone Propionate (Flonase Nasal [place]) 2 sprays DAILY NA 10/12/17 09:00 11/11/17 08:59 10/19/17 07:41 2 SPRAYS Thiamine HCl (Vitamin B-1 Tab) 200 mg TID PO 10/12/17 14:00 11/11/17 13:59 10/19/17 07:41 200 MG Folic Acid (Folvite Tab) 1 mg QAM PO 10/13/17 09:00 11/12/17 08:59 10/19/17 07:42 1 MG Albuterol/ Ipratropium (Duoneb) 3 ml Q6H PRN INH 10/14/17 08:45 11/13/17 08:44 Multivitamins (Multivitamin Tab) 1 tab QAM PO 10/15/17 08:00 11/14/17 08:59 10/19/17 07:42 1 TAB Multivitamins (Flintstones Complete Tab) 1 tab QAM PO 10/15/17 08:00 11/14/17 08:59 10/19/17 07:41 1 TAB Benzonatate (Tessalon Perles Cap) 100 mg TID PRN PO 10/15/17 15:15 11/14/17 15:14 10/18/17 21:51 100 MG Magnesium Oxide (Mag-Ox Tab) 400 mg BID PO 10/16/17 20:00 11/15/17 19:59 10/19/17 07:42 400 MG Objective Vital Signs Date Time Temp Pulse Resp B/P (MAP) Pulse Ox O2 Delivery O2 Flow Rate FiO2 10/19/17 08:00 Room Air 10/19/17 07:33 36.7 77 20 107/72 (84) 92 Room Air 10/18/17 23:59 Room Air 10/18/17 23:38 37.0 82 20 126/83 (97) 94 Room Air 10/18/17 16:00 Room Air 10/18/17 15:38 36.8 96 22 109/73 (85) 95 Room Air Physical Exam General Appearance: no apparent distress, + thin Eyes: sclerae normal ENT: hearing grossly normal Neck: supple, no JVD, trachea midline Respiratory/Chest: lungs clear, normal breath sounds, no respiratory distress, no accessory muscle use Cardiovascular: regular rate, rhythm, no gallop, no murmur Abdomen: normal bowel sounds, non tender, soft Extremities: no pedal edema Neurologic/Psychiatric: alert, oriented x 3 Skin: normal color, warm/dry Laboratory Results Last 24 Hours Test 10/19/17 09:11 Sodium Level 137 mmol/L Potassium Level 3.8 mmol/L Chloride Level 104 mmol/L Carbon Dioxide Level 27 mmol/L Anion Gap 6.0 mmol/L Blood Urea Nitrogen 8 mg/dl Creatinine 0.79 mg/dl Est Creatinine Clear Calc Drug Dose 55.8 ml/min Estimated GFR () 95.6 Estimated GFR (Non- 82.5 BUN/Creatinine Ratio 9.6 Random Glucose 149 mg/dl Calcium Level 9.1 mg/dl Assessment and Plan A 57-year-old white female transferred from [facility] on October 11/2018 because of Severe hyponatremia Severe Hyponatremia 2/2 ETOH Use/Poor Solute Intake: RESOLVED - No symptoms at this time; No further need for salt tablets - maintain fluid restriction - will recheck in AM to assess stabilization ETOH Abuse Disorder with Mild Withdrawal: - Does not appear to be withdrawaling at this time; maintain AWSS protocol with Ativan PRN - Completed Librium taper - Flinstone vitamins, Folic Acid 1 mg daily, Thiamin 200 mg TID COPD without Exacerbation and Tobacco Abuse Disorder: STABLE - Reports the Duonebs really helped her and does not have a nebulizer machine at home - could see if this can be arranged - Advair BID and Duonebs PRN DVT Prophylaxis: Lovenox Disposition: PT/OT - Discussed with son Damir over the phone per patient's permission - planning for ETOH rehab after D/C - medically suitable pending approval - possible bed tomorrow pending patient interview Continued [facility] stay due to: home environment unsafe for pt Discharge planning: other (ETOH Rehab - Pyram[facility])
[2017-10-19 15:12] VITALS: BP 135/91; PULSE 93; TEMP 36.6; O2SAT 98
[2017-10-19] MEDS: BENZONATATE 100MG CAP PO PRN (20:15)
[2017-10-19] MEDS: ENOXAPARIN 40 MG/0.4 ML SYR SQ SCH (20:15)
[2017-10-19 23:17] VITALS: BP 114/81; PULSE 84; TEMP 36.8; O2SAT 95
[2017-10-20 07:15] VITALS: BP 102/70; PULSE 81; TEMP 37.2; O2SAT 94
[2017-10-20] MEDS: FLUTICASONE/SALMETEROL 100/50 (ADVAIR) 14 PUFF/1 INHALER INH SCH (07:49)
[2017-10-20] MEDS: NICOTINE 7 MG/24 HR TDSY TD SCH (07:50)
[2017-10-20] MEDS: MULTIVITAMIN TAB PO SCH (07:50)
[2017-10-20] MEDS: MAGNESIUM OXIDE 400 MG TAB PO SCH (07:50)
[2017-10-20] MEDS: FLUTICASONE PROPIONATE NA SPR 16 GM BTL SCH (07:50)
[2017-10-20] MEDS: FLINTSTONES COMPLETE CHEWABLE TAB PO SCH (07:50)
[2017-10-20] MEDS: THIAMINE HCL 100 MG TAB PO SCH (07:50)
[2017-10-20 07:56] LABS: CREATININE 0.73 mg/dl (0.60-1.20); POTASSIUM 4.7 mmol/L (3.5-5.1)
[2017-10-20 10:02] VITALS: BP 102/70; PULSE 81; TEMP 37.2; O2SAT 94
[2017-10-20] MEDS ORDERED: IPRASOL4 INH (11:45)
[2017-10-20] MEDS ORDERED: THM100 PO (11:45)
[2017-10-20] MEDS ORDERED: MULT-890 PO (11:45)
[2017-10-20] MEDS ORDERED: FLV1 PO (11:45)
[2017-10-20] MEDS ORDERED: NICO7DIS7 TD (11:45)
[2017-10-20] MEDS ORDERED: ADVIN10050 INH (11:45)
--- NOTE | 2017-10-20 11:49 | Discharge Instructions ---
Discharge Instructions Date of Service October 20, 2017. Admission Reason for Admission: Hypokalemia, Diarrhea Discharge Discharge Diagnosis / Problem: Hyponatremia Discharge Goals Goal(s): Decrease discomfort, Improve function, Increase independence Activity Recommendations Activity Level: Up Ad Barbie . Additional Information Patient informed of condition: Yes Advance Directives: No DNR: No Level of Care: Other Communicable Disease: No Prognosis: Improving Instructions / Follow-Up Instructions / Follow-Up A 57-year-old white female transferred from [facility] on October 11/2018 because of Severe hyponatremia Low Salt Level due to Alcohol Intake and Poor Dietary Intake: RESOLVED - This should stay improved with avoidance of excessive alcohol intake. This can be monitored by your family doctor as well but has been normal for multiple days now - Continue Vitamins - can supplement with gummy vitamins if its easier to take in. - Alcohol can cause stomach irritation and this may be why the medications didn' t make you feel good when taking them before. Alcohol Disorder with Mild Withdrawal: - Avoid alcohol intake. No further withdrawal symptoms noted. COPD without Exacerbation and Tobacco Abuse Disorder: STABLE - Continue nicotine patch and recommend quitting smoking - Continue your inhalers. We are working to try and get you a nebulizer machine and this can be coordinated after rehab High Blood Pressure: - STOP TAKING YOUR HYDROCHLOROTHIAZIDE - THIS MEDICATION MAY BE WHY YOUR SALT LEVEL WAS VERY LOW - Recommend to see your family doctor if you need blood pressure medication because your blood pressure here has been low normal. Current Hospital Diet Patient's current hospital diet: Regular Diet Discharge Diet Recommended Diet: Regular Diet Pending Studies Studies pending at discharge: no Physician Orders On Transfer POLST Discussion: Not Applicable Laboratory Results Hemoglobin A1c Test 10/13/17 11:43 Range/Units Estimated Average Glucose 111 mg/dl Hemoglobin A1c 5.5 4.5-5.6 % Lipid Panel Test 10/12/17 04:34 Range/Units Triglycerides Level 68 0-150 mg/dl Cholesterol Level 166 0-200 mg/dl HDL Cholesterol 74 mg/dl Cholesterol/HDL Ratio 2.2 LDL Cholesterol, Calculated 78 mg/dl Medical Emergencies . Who to Call and When: Medical Emergencies: If at any time you feel your situation is an emergency, please call 911 immediately. . Non-Emergent Contact Non-Emergency issues call your: Primary Care Provider Call Non-Emergent contact if: you have a fever, your pain is concerning you, you have any medication questions . . "Provider Documentation" section prepared by Mariana Toure. . Core Measure Problem Core Measures: None
[2017-10-20] MEDS ORDERED: PRVHFAIN INH (11:50)
--- NOTE | 2017-10-20 16:58 | Discharge Summary ---
Discharge Summary Date of Service October 20, 2017. Discharge Summary Admission Date: Oct 11, 2017 at 19:56 Discharge Date: October 20, 2017 Discharge Disposition: Rehab (ETOH ) Principal Diagnosis: Hyponatremia Problems/Secondary Diagnoses: (1) Tobacco abuse Status: Chronic Procedures: CHEST ONE VIEW PORTABLE FINDINGS: Lung volumes are normal. There is no pneumothorax or pleural effusion. There is no evidence for pulmonary edema. There is mild left basilar opacity. A 1.1 cm nodule projects over the left lower lung. This favors a nipple shadow. Cardiac size is normal. Mediastinal contours are normal. There is no evidence for pulmonary edema. IMPRESSION: 1. Mild left basilar opacity which may reflect atelectasis or a small focus of pneumonia. Follow-up PA and lateral chest radiographs in one month are recommended. 2. 1.1 cm nodular density projecting over the left lower lung which favors a nipple shadow. ABDOMINAL ULTRASOUND, RIGHT UPPER QUADRANT Pancreas: The pancreas demonstrates a normal echotexture. Liver: The liver is slightly echogenic consistent with mild fatty change. No definite evidence for cirrhosis. Gallbladder: Nonmobile round echogenic foci within the gallbladder. Therefore, these favor polyps. The largest measures 1 cm. There is a second polyp measuring 7 mm. No gallbladder wall thickening. CBD: 4 mm. Right kidney: No hydronephrosis. Cluster of cysts within the upper pole of the right kidney. Dominant cyst measures 3.2 cm. No definite soft tissue component identified IMPRESSION: 1. Mild hepatic steatosis. No definite evidence for cirrhosis. 2. There are 2 nonmobile round echogenic foci within the gallbladder. Therefore, these favor polyps. The largest measures 1 cm. Surgical consultation is recommended due to the fact that a 1 cm polyp is typically resected. 3. There appears to be a cluster of cysts within the upper pole of the right kidney. However, six-month ultrasound follow up is recommended to ensure stability and to exclude the less likely possibility of septated cystic lesion. Consultations: 1. Rn Anesthetist Medication Reconciliation New Medications: Albuterol (Ventolin Hfa) 60 Puffs/5400 Mcg Aers 2 PUFFS INH QID PRN for SOB/Wheezing for 30 Days, #1 INHALER Fluticasone Prop/Salmeterol (Advair Diskus 100-50 Mcg/Dose) 14 Puff/1 Inhaler Aerp 1 PUFF INH BID for 30 Days, #1 INHALER Folic Acid (Folic Acid) 1 Mg Tab 1 MG PO QAM for 30 Days, #30 TAB Ipratropium-Albuterol (Duoneb) 3 Ml Nebu 3 ML INH Q6H PRN for SOB/WHEEZING/COUGH for 30 Days, #1 BOX Multiple Vitamin (Daily-Garett) 1 Tab Tab 1 TAB PO QAM for 30 Days, #30 TAB Nicotine (Nicoderm Cq 7 Mg Patch) 7 Mg/24 Hr Dis 1 PATCH TD QAM for 14 Days, #14 PATCH Thiamine HCl (Vitamin B-1) 100 Mg Tab 100 MG PO DAILY for 30 Days, #30 TAB Discharge Exam Review of Systems: Constitutional: No fever, No chills, No weakness, No fatigue ENT: No nasal symptoms, No sore throat Respiratory: + cough, No shortness of breath Cardiovascular: No chest pain Abdomen: No pain, No nausea, No vomiting, No diarrhea, No constipation Genitourinary - Female: No dysuria Psychiatric: + substance abuse, No anxiety Hematologic / Lymphatic: No abnormal bleeding/bruising Physical Exam: General Appearance: no apparent distress Eyes: sclerae normal ENT: hearing grossly normal Neck: supple, no JVD, trachea midline Respiratory/Chest: lungs clear, normal breath sounds, no respiratory distress, no accessory muscle use Cardiovascular: regular rate, rhythm, no gallop, no murmur Abdomen / GI: normal bowel sounds, non tender, soft Extremities: no pedal edema Neurologic/Psychiatric: alert, oriented x 3 Skin: normal color, warm/dry Hospital Course ADMISSION: The patient is a 57-year-old white female with a significant past medical history of tobacco abuse disorder, COPD, alcohol abuse disorder, hypertension, dyslipidemia, transferred from [facility] because of severe hyponatremia, hypokalemia, and hypomagnesemia. Medical records obtained from ED physician in [facility], and face to face talk with patient. The patient reported she has not been feeling well for a couple of days. She has continued heavy alcohol intake. Last time alcohol drink was last night. She showed up in [facility] today because of generalized weakness and diarrhea as well. In [facility], she was found to have severe hyponatremia. They gave medicine of 3% of saline x1. She was found to have severe hypokalemia , potassium was replaced with 10 mEq IV and 30 mEq p.o. She was found to have hypomagnesemia. Magnesium 2 g was given. She reported was having tremors, not really mental status changes. Other testing has been unremarkable. When I interviewed the patient, she was anxious, some tremor, a little bit hyper in talking. She was awake, alert, and orientated. She was having some facial superficial skin scratches she reported was from cat scratch. There was not any drainage. There was no fever or chills. Denied chest pain, palpitation , cough, or sputum. Denied lower extremity swelling. Currently, denied nausea , vomiting, abdominal pain, diarrhea, or constipation. Denied dysuria, urgency , or frequencies. Denied facial droop, slurry speeches, or local weakness. Per report in [facility], she was having some emesis. She reportedly has some left rib pain and lower back pain from the fall over a month ago, which was evaluated. There were no acute conditions. HOSPITAL COURSE: Severe Hyponatremia 2/2 HCTZ Use/ETOH Use/Poor Solute Intake: RESOLVED - She was a transfer from [facility] and she reported being on HTN medications however did not know the name of it. Turns out she was on HCTZ 25 mg BID which is more likely the cause of her hyponatremia then ETOH use but definitely contributes as well as she hasn't been taking in good food - Recommended to stop HCTZ and to follow-up with PCP to discuss need for BP medications - Hyponatremia resolved with stabilization of Na at 137 HTN: - In addition to HCTZ she reports she is on Lisinopril. Discussed that she has had low to low normal BPs in hospital and to stop all BP meds until seen by her family doctor. Especially the HCTZ ETOH Abuse Disorder with Mild Withdrawal: - No further signs of withdrawal - states she has cut back from her baseline but still using 2 drinks of whiskey to help her sleep; son was concerned that her falls are related to intoxication - No further signs of withdrawal at this time and will go to [facility] for ETOH rehab - Completed Librium taper in hospital - Folic Acid 1 mg daily, Thiamin 100 mg daily, and MVI COPD without Exacerbation and Tobacco Abuse Disorder: STABLE - Rx sent to see if she can get a nebulizer machine. Rx given for Duonebs as well - Continue Advair BID and rescue inhaler in the interim Disposition: [facility] Total Time Spent: Greater than 30 minutes This includes examination of the patient, discharge planning, medication reconciliation, and communication with other providers. Discharge Instructions Please refer to the electronic Patient Visit Report (Discharge Instructions) for additional information. Additional Copies To Ilan Gaona DO
== END 2017-10-20 12:30 | disposition other institution (70) | DRG 641 ==
LOC: C.MSICU 19:15 → UNDOADMIN 19:15 → C.MSICU 19:56 → ENRESERV 10-14 15:23 → C.MS4W 10-14 16:26
PROVIDERS: ADMIT Hospitalist; ATTEND Internal Medicine
DX: E87.1 Hypo-osmolality and hyponatremia (principal); F10.239 Alcohol dependence with withdrawal, unspecified; T50.2X5A Adverse effect of carbonic-anhydrase inhibitors, benzothiadiazides and other diuretics, initial encounter; K29.20 Alcoholic gastritis without bleeding; E87.6 Hypokalemia; E83.42 Hypomagnesemia; E53.8 Deficiency of other specified B group vitamins; D72.829 Elevated white blood cell count, unspecified; R19.7 Diarrhea, unspecified; J44.9 Chronic obstructive pulmonary disease, unspecified; I10 Essential (primary) hypertension; E78.5 Hyperlipidemia, unspecified; F17.200 Nicotine dependence, unspecified, uncomplicated; Z51.81 Encounter for therapeutic drug level monitoring; Z79.899 Other long term (current) drug therapy; Z91.81 History of falling